=== PATIENT | male | born 1970 ===

== ENCOUNTER 2023-04-06 00:30 | Inpatient (IN) | payer OTHER, SELFPAY ==
[2023-04-06 00:49] VITALS: BP 152/74; PULSE 100; RESP 18; TEMP 36.7; O2SAT 99
[2023-04-06 01:27] VITALS: BMI 29.1
[2023-04-06] MEDS: traZODone HCL 50 MG TABLET PO (01:28)
[2023-04-06] MEDS: hydrOXYzine HCL 25 MG TABLET PO (01:28)
--- NOTE | 2023-04-06 02:57 | PC.ADMIT ---
PT arrived to unit at 0038 on CV from [place] ED where PT self presented with SI, PT has prior attempts, most recent by R wrist laceration a month ago, requiring 8-9 stitches. PT A+O, cooperative during admission process, VSS, skin/contraband check completed, PT changed out of paper garments into hospital attire. PT has scar on R lower leg, PT reports right hand weakness and bilateral lower extremity weakness. PT denies SI/HI as well as A/VH. PT reports feeling safe on unit at time of admission. Legals signed, treatment plan started, safety tool needs to be done, PT placed on 15 minute safety checks. PT declined flu vaccine, PT is a non smoker, PT reports current ETOH usage of 5-6 beers daily. PT currently resting in bed with eyes closed at this time.
[2023-04-06 08:20] VITALS: BP 139/91; PULSE 95; RESP 16; TEMP 36.8; O2SAT 95
--- NOTE | 2023-04-06 10:02 | HO.PSYADMNOT ---
HPI Date of Service: 04/06/23 Chief Complaint: Major Depressive Disorder, single episode Sources of Information: patient interviewed, chart reviewed and crisis/core team assessment reviewed HPI Subjective Notes: Muhammad Warning and Conditional Voluntary Narrative: Patient is a 52-year-old male with long history of depression, stutter, alcohol dependence, gout, chronic back pain, psoriasis who presents for worsening depression in the face of psychosocial stressors, untreated depression and conflict with his brother. Patient reports that he has been depressed most of his life but he hit it. He said he has been living with his parents his entire life and new at 17 years old that he would struggle living on without them if they . Patient's mom 3 years ago from an ugly malone with cancer which worsened his depression; this past February his father also from cancer, significantly worsening his depression at which time patient attempted suicide by cutting his wrist. After he was hospitalized he remained sober from alcohol for about 2 weeks but then relapsed, again drinking heavily since early March. Patient and his brother both live in the house there father owned and this past week his brother said that patient had to leave the house, triggering patient to become suicidal who then self presented, not wanting to hurt himself. Patient currently in alcohol withdrawal, drinking up to 15 drinks per night; denies any history of alcohol withdrawal seizures. No AVH; denies any history of manic episodes or behaviors. Past Psychiatric History: Reports depressed for most of his life; little medication management Hospitalized a little over a month ago for suicide attempt Medical Evaluation Reviewed: Hospitalist Destiny Pending COUNT INCLUDES [facility] Medical History (Updated 04/06/23 @ 16:55 by Ahmet Winter MD) MDD (major depressive disorder), recurrent severe, without psychosis Family History: Denies Social History: Has lived with his parents his entire life Substance History: Daily alcohol abuse/dependence; cocaine in distant past Trauma History: Denies Diagnostics Vital Signs (24Hr): Vital Signs - 24 hr 04/06/23 00:49 04/06/23 08:20 Temperature 98.1 F 98.2 F Pulse Rate 100 95 Respiratory Rate 18 16 Blood Pressure 152/74 H 139/91 H Pulse Oximetry 99 95 Oxygen Delivery Method Room Air Room Air BMI result Body Mass Index 29.1 Meds/Allergies Meds Home Medications Medication Instructions Recorded Confirmed Type allopurinol 300 mg tablet 300 mg PO DAILY 04/06/23 04/06/23 History clonazepam 0.5 mg tablet 0.5 mg PO TID PRN Anxiety 04/06/23 04/06/23 History folic acid 1 mg tablet 1 mg PO DAILY 04/06/23 04/06/23 History gabapentin 300 mg capsule 300 mg PO BID 04/06/23 04/06/23 History lisinopril 10 mg tablet 10 mg PO DAILY 04/06/23 04/06/23 History methocarbamol 500 mg tablet 500 mg PO TID@0800,1400,2000 PRN 04/06/23 04/06/23 History Pain oxycodone-acetaminophen 5 mg-325 1 tab PO BID PRN pain 04/06/23 04/06/23 History mg tablet risankizumab-rzaa 150 mg/mL 150 mg subcut Q12W 04/06/23 04/06/23 History subcutaneous syringe ropinirole 1 mg tablet 1 mg PO BEDTIME 04/06/23 04/06/23 History sertraline 100 mg tablet 100 mg PO DAILY 04/06/23 04/06/23 History trazodone 100 mg tablet 100 mg PO BEDTIME PRN Sleep 04/06/23 04/06/23 History zolpidem 5 mg tablet 5 mg PO BEDTIME PRN Sleep 04/06/23 04/06/23 History Allergies Allergies Allergy/AdvReac Type Severity Reaction Status Date / Time No Known Allergies Allergy Verified 04/06/23 00:57 Mental Status Exam Mental Status Exam Narrative: Pt is alert and oriented; behavior is cooperative, friendly and calm; patient is not in distress; dressed in hospital attire, scruffy with adequate hygiene; mood is described as depressed and affect congruent, downcast; eye contact appropriate; Speech is normal rate, volume and prosody and not pressured; some psychomotor retardation present; thought process is organized and goal directed; Thought content is on homelessness, loss of his parents, tx; otherwise pertinent to relevant topics and without any delusional content, paranoid ideations or grandiosity; intermittent passive SI; no HI. There is no evidence of perceptual disturbance and denies AVH. Patients insight and judgment impaired Assessment & Plan Assessment & Plan (1) MDD (major depressive disorder), recurrent severe, without psychosis: Status: Acute Code(s): F33.2 - Major depressive disorder, recurrent severe without psychotic features Plan HPI: Patient is a 52-year-old male with long history of depression, stutter, alcohol dependence, gout, chronic back pain, psoriasis who presents for worsening depression in the face of psychosocial stressors, untreated depression and conflict with his brother. Patient reports that he has been depressed most of his life but he hit it. He said he has been living with his parents his entire life and new at 17 years old that he would struggle living on without them if they . Patient's mom 3 years ago from an ugly malone with cancer which worsened his depression; this past February his father also from cancer, significantly worsening his depression at which time patient attempted suicide by cutting his wrist. After he was hospitalized he remained sober from alcohol for about 2 weeks but then relapsed, again drinking heavily since early March. Patient and his brother both live in the house there father owned and this past week his brother said that patient had to leave the house, triggering patient to become suicidal who then self presented, not wanting to hurt himself. Patient currently in alcohol withdrawal, drinking up to 15 drinks per night; denies any history of alcohol withdrawal seizures. No AVH; denies any history of manic episodes or behaviors. Impression/plan: Patient reports depression most of his life; it seems that stutter, present from a young age has been a debilitating experience and patient became dependent on his parents, living with them throughout his life. With his parents now , his brother wants him evicted from the house. He said he hid his depression which has largely gone untreated except for low dose of Zoloft for a couple years. Patient has chronic pain and is chronically on Percocet. Plan CV Q 15 minutes CIWA with Ativan p.r.n. Increase Zoloft to 150 mg; was recently increased to 100 mg about a month ago Continue clonazepam 0.5 mg t.i.d; home medication Continue gabapentin 300 mg however will increase it to q.i.d. for alcohol withdrawal Continue oxycodone 5 mg; patient may take it with acetaminophen Make allopurinol p.r.n.; patient has not taking it in years and only uses as a p.r.n. Continue lisinopril for BP Continue ropinirole for restless leg Patient educated on: diagnosis, medication risk/benefits, substance abuse, therapeutic strategies and medical condition Informed Consent: understands Reason for continued inpatient stay Substantial Risk for: rapid decompensation Statement Statement: I have reviewed the history and physical and performed a pertinent examination on my patient. No changes have occurred unless specified. If the History and Physical was not performed prior to admission, the Hospitalist's service will be consulted for completing the admission physical. Time Spent With Patient Time: Total time managing care of this patient today ____ minutes.
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
[2023-04-06] MEDS: LORazepam 1 MG TABLET 2 MG PO (12:16)
[2023-04-06] MEDS: Gabapentin 300 MG CAPSULE PO ×4 (12:16→20:14)
[2023-04-06] MEDS: clonazePAM 0.5 MG TABLET PO ×3 (13:32→20:14)
[2023-04-06] MEDS: oxyCODONE HCl Immed Release 5 MG TABLET PO ×2 (13:32→20:14)
[2023-04-06] MEDS: Acetaminophen 325 MG TABLET 650 MG PO (13:34)
[2023-04-06 17:26] VITALS: BP 114/80; PULSE 101; O2SAT 98
[2023-04-06] MEDS: rOPINIRole HCL 1 MG TABLET PO (20:14)
[2023-04-06] MEDS: traZODone HCL 100 MG TABLET PO (20:14)
[2023-04-07] MEDS: LORazepam 1 MG TABLET PO (06:05)
[2023-04-07] MEDS: Magnesium Hydrox/Alum Hydrox 30 ML ORAL.SUSP PO (06:06)
[2023-04-07 07:52] LABS: Estimated Average Glucose 111 mg/dL; Hemoglobin A1c % 5.5 % (<6.0)
[2023-04-07 07:57] LABS: Alanine Aminotransferase 31 U/L (0-40); Albumin Level 4.3 g/dL (3.5-5.0); Alkaline Phosphatase 56 U/L (39-117); Anion Gap 12 (12-20); Aspartate Amino Transferase 26 U/L (5-37); Bilirubin Total 0.6 mg/dL (0.0-1.0); Blood Urea Nitrogen 7 mg/dL (9-16); Calcium 10.3 mg/dL (8.4-10.2); Carbon Dioxide 29 mmol/L (22-29); Chloride 104 mmol/L (96-108); Cholesterol 151 mg/dL (<200); Creatinine Clr Calc Pharmacy 113.9; Estimated Glomerular Filt Rate > 60; Glucose Fasting 138 mg/dL (60-99); HDL Cholesterol 39 mg/dL (>40); LDL Cholesterol Calculated 82 mg/dL (<100); Sodium 141 mmol/L (135-145); Total Protein 7.5 g/dL (6.5-8.0); Triglycerides 152 mg/dL (<150)
[2023-04-07 08:00] VITALS: BP 132/79; PULSE 91; RESP 16; TEMP 36.6; O2SAT 97
[2023-04-07 08:14] LABS: Thyroid Stimulating Hormone 0.92 uIU/mL (0.32-4.0)
[2023-04-07 08:28] LABS: Folate 12.2 ng/mL (> or = 4.0); Vitamin B12 344 pg/mL (200-900)
[2023-04-07] MEDS: Folic Acid 1 MG TABLET PO (08:28)
[2023-04-07] MEDS: Sertraline HCL 50 MG TABLET 150 MG PO (08:28)
[2023-04-07] MEDS: lisinopriL 10 MG TABLET PO (08:28)
[2023-04-07] MEDS: clonazePAM 0.5 MG TABLET PO ×3 (08:28→19:51)
[2023-04-07] MEDS: Gabapentin 300 MG CAPSULE PO ×4 (08:28→19:51)
[2023-04-07] MEDS: Acetaminophen 325 MG TABLET 650 MG PO (08:38)
[2023-04-07] MEDS: oxyCODONE HCl Immed Release 5 MG TABLET PO ×2 (08:38→17:14)
--- NOTE | 2023-04-07 09:27 | HO.PSYCHPN ---
Subjective Subjective Date of Service: 04/07/23 Reason For Visit: Major Depressive Disorder, single episode Interim History: Met with patient; discussed with team Patient reports that he is feeling a little better and his affect is noticeably brighter. Says withdrawal is winding down and getting close to being over. Thinks that dwindling withdrawal symptoms and getting back on clonazepam and oxycodone have significantly improved his mood. No side effects from increased Zoloft. Patient reports trouble sleeping but thinks it is likely due to withdrawal. Ambivalent about what to do next, anxious about housing. Mental Status Exam Mental Status Exam Narrative: Pt is alert and oriented; behavior is cooperative, friendly and calm; patient is not in distress; dressed in casual attire, good hygiene; mood is described as a little better and affect congruent, no longer downcast; eye contact appropriate; Speech is normal rate, volume and prosody and not pressured; no psychomotor retardation present; thought process is organized and goal directed; Thought content is on homelessness, loss of his parents, tx; otherwise pertinent to relevant topics and without any delusional content, paranoid ideations or grandiosity; intermittent passive SI; no HI. There is no evidence of perceptual disturbance and denies AVH. Patients insight and judgment impaired but improving. Diagnostics Vital Signs (24Hr): Vital Signs - 24 hr 04/06/23 17:26 Pulse Rate 101 H Blood Pressure 114/80 Pulse Oximetry 98 Oxygen Delivery Method Room Air BMI result Body Mass Index 29.1 Labs 04/07/23 06:56 Labs: Laboratory Results - last 48 hr 04/07/23 06:56 Sodium 141 Potassium 4.0 Chloride 104 Carbon Dioxide 29 Anion Gap 12 BUN 7 L Creatinine 0.88 Estim Creat Clear Calc 113.9 Estimated GFR > 60 Fasting Glucose 138 H Estimat Average Glucose 111 Hemoglobin A1c % 5.5 Calcium 10.3 H Total Bilirubin 0.6 AST 26 ALT 31 Alkaline Phosphatase 56 Total Protein 7.5 Albumin 4.3 Triglycerides 152 H Cholesterol 151 LDL Cholesterol, Calc 82 HDL Cholesterol 39 L Vitamin B12 344 Folate 12.2 TSH 0.92 Medications Medications Current Medications Acetaminophen (Acetaminophen 325 Mg Tablet) 650 mg PO Q6H PRN PRN Reason: Headache/Pain Mild Scale (1-3) Last Admin: 04/07/23 08:38 Dose: 650 mg Al Hydroxide/Mg Hydroxide (Magnesium Hydrox/Alum Hydrox 30 Ml Oral.Susp) 30 ml PO Q6H PRN PRN Reason: Heartburn/Nausea Last Admin: 04/07/23 06:06 Dose: 30 ml Allopurinol (Allopurinol 300 Mg Tablet) 300 mg PO DAILY PRN PRN Reason: for Gout flare Clonazepam (Clonazepam 0.5 Mg Tablet) 0.5 mg PO TID [facility] Last Admin: 04/07/23 08:28 Dose: 0.5 mg Clonidine HCl (Clonidine Hcl 0.1 Mg Tablet) 0.1 mg PO Q4H PRN; Protocol PRN Reason: anxiety Folic Acid (Folic Acid 1 Mg Tablet) 1 mg PO DAILY [facility] Last Admin: 04/07/23 08:28 Dose: 1 mg Gabapentin (Gabapentin 300 Mg Capsule) 300 mg PO QID [facility] Last Admin: 04/07/23 08:28 Dose: 300 mg Hydroxyzine HCl (Hydroxyzine Hcl 25 Mg Tablet) 25 mg PO Q6H PRN PRN Reason: Anxiety Last Admin: 04/06/23 01:28 Dose: 25 mg Lisinopril (Lisinopril 10 Mg Tablet) 10 mg PO DAILY [facility]; Protocol Last Admin: 04/07/23 08:28 Dose: 10 mg Lorazepam (Lorazepam 1 Mg Tablet) 1 mg PO Q2H PRN PRN Reason: CIWA 6-10 Last Admin: 04/07/23 06:05 Dose: 1 mg Lorazepam (Lorazepam 1 Mg Tablet) 2 mg PO Q2H PRN PRN Reason: CIWA 11 and above Magnesium Hydroxide (Milk Of Magnesia 30 Ml Oral.Susp) 30 ml PO DAILY PRN PRN Reason: Constipation Methocarbamol (Methocarbamol 500 Mg Tablet) 500 mg PO TID@0800,1400,2000 PRN PRN Reason: muscle aches/Pain Oxycodone HCl (Oxycodone Hcl Immed Release 5 Mg Tablet) 5 mg PO BID PRN PRN Reason: pain Last Admin: 04/07/23 08:38 Dose: 5 mg Ropinirole HCl (Ropinirole Hcl 1 Mg Tablet) 1 mg PO BEDTIME [facility] Last Admin: 04/06/23 20:14 Dose: 1 mg Sertraline HCl (Sertraline Hcl 50 Mg Tablet) 150 mg PO DAILY [facility] Last Admin: 04/07/23 08:28 Dose: 150 mg Trazodone HCl (Trazodone Hcl 100 Mg Tablet) 100 mg PO BEDTIME PRN PRN Reason: Sleep Last Admin: 04/06/23 20:14 Dose: 100 mg Allergies Allergies Allergy/AdvReac Type Severity Reaction Status Date / Time No Known Allergies Allergy Verified 04/06/23 00:57 Assessment & Plan Assessment & Plan (1) MDD (major depressive disorder), recurrent severe, without psychosis: Status: Acute Code(s): F33.2 - Major depressive disorder, recurrent severe without psychotic features Plan HPI: Patient is a 52-year-old male with long history of depression, stutter, alcohol dependence, gout, chronic back pain, psoriasis who presents for worsening depression in the face of psychosocial stressors, untreated depression and conflict with his brother. Patient reports that he has been depressed most of his life but he hit it. He said he has been living with his parents his entire life and new at 17 years old that he would struggle living on without them if they . Patient's mom 3 years ago from an ugly malone with cancer which worsened his depression; this past February his father also from cancer, significantly worsening his depression at which time patient attempted suicide by cutting his wrist. After he was hospitalized he remained sober from alcohol for about 2 weeks but then relapsed, again drinking heavily since early March. Patient and his brother both live in the house there father owned and this past week his brother said that patient had to leave the house, triggering patient to become suicidal who then self presented, not wanting to hurt himself. Patient currently in alcohol withdrawal, drinking up to 15 drinks per night; denies any history of alcohol withdrawal seizures. No AVH; denies any history of manic episodes or behaviors. Impression/plan: Patient reports depression most of his life; it seems that stutter, present from a young age has been a debilitating experience and patient became dependent on his parents, living with them throughout his life. With his parents now , his brother wants him evicted from the house. He said he hid his depression which has largely gone untreated except for low dose of Zoloft for a couple years. Patient has chronic pain and is chronically on Percocet. Hospital course: 04/07 withdrawal symptoms doing delaying, mood improving; continue with current treatment plan. Still some moderate scores on CIWA, however mostly low scores; Will likely DC CIWA today or tomorrow. Plan CV Q 15 minutes CIWA with Ativan p.r.n. Increase Zoloft to 150 mg; was recently increased to 100 mg about a month ago Continue clonazepam 0.5 mg t.i.d; home medication Continue gabapentin 300 mg however will increase it to q.i.d. for alcohol withdrawal Continue oxycodone 5 mg; patient may take it with acetaminophen Make allopurinol p.r.n.; patient has not taking it in years and only uses as a p.r.n. Continue lisinopril for BP Continue ropinirole for restless leg Patient educated on: diagnosis, medication risk/benefits and substance abuse Informed Consent: understands Reason for continued inpatient stay Substantial Risk for: rapid decompensation Time Spent With Patient Time: Total time managing care of this patient today ____ minutes.
[2023-04-07 18:46] VITALS: BP 118/72; PULSE 91; RESP 18; TEMP 36.1; O2SAT 99
[2023-04-07] MEDS: rOPINIRole HCL 1 MG TABLET PO (19:51)
[2023-04-07] MEDS: traZODone HCL 100 MG TABLET PO (19:51)
[2023-04-07] MEDS: methocarbamoL 500 MG TABLET PO (19:55)
[2023-04-07] MEDS: hydrOXYzine HCL 25 MG TABLET PO (19:55)
[2023-04-08] MEDS: hydrOXYzine HCL 25 MG TABLET PO ×2 (02:35→21:06)
[2023-04-08 07:50] VITALS: BP 113/73; PULSE 91; RESP 16; TEMP 36.6; O2SAT 97
[2023-04-08] MEDS: Gabapentin 300 MG CAPSULE PO ×4 (07:57→21:06)
[2023-04-08] MEDS: Sertraline HCL 50 MG TABLET 150 MG PO (07:57)
[2023-04-08] MEDS: oxyCODONE HCl Immed Release 5 MG TABLET PO ×2 (07:57→16:19)
[2023-04-08] MEDS: lisinopriL 10 MG TABLET PO (07:57)
[2023-04-08] MEDS: Folic Acid 1 MG TABLET PO (07:57)
[2023-04-08] MEDS: Acetaminophen 325 MG TABLET 650 MG PO (07:58)
[2023-04-08] MEDS: clonazePAM 0.5 MG TABLET PO ×3 (07:58→21:06)
--- NOTE | 2023-04-08 11:10 | HO.PSYCHPN ---
Subjective Subjective Date of Service: 04/08/23 Reason For Visit: Major Depressive Disorder, single episode Interim History: Met with patient; discussed with team still hard time sleeping, but mood better; asking for Clonazepam and gabapentin together which he takes as outpt' Mental Status Exam Mental Status Exam Narrative: Pt is alert and oriented; behavior is cooperative, friendly and calm; patient is not in distress; dressed in casual attire, good hygiene; mood is described as a little better and affect congruent, no longer downcast; eye contact appropriate; Speech is normal rate, volume and prosody and not pressured; no psychomotor retardation present; thought process is organized and goal directed; Thought content is on homelessness, loss of his parents, tx; otherwise pertinent to relevant topics and without any delusional content, paranoid ideations or grandiosity; intermittent passive SI; no HI. There is no evidence of perceptual disturbance and denies AVH. Patients insight and judgment fair Diagnostics Vital Signs (24Hr): Vital Signs - 24 hr 04/07/23 18:46 04/08/23 07:50 Temperature 97.0 F 98 F Pulse Rate 91 91 Respiratory Rate 18 16 Blood Pressure 118/72 113/73 Pulse Oximetry 99 97 Oxygen Delivery Method Room Air Room Air BMI result Body Mass Index 29.1 Labs 04/07/23 06:56 Labs: Laboratory Results - last 48 hr 04/07/23 06:56 Sodium 141 Potassium 4.0 Chloride 104 Carbon Dioxide 29 Anion Gap 12 BUN 7 L Creatinine 0.88 Estim Creat Clear Calc 113.9 Estimated GFR > 60 Fasting Glucose 138 H Estimat Average Glucose 111 Hemoglobin A1c % 5.5 Calcium 10.3 H Total Bilirubin 0.6 AST 26 ALT 31 Alkaline Phosphatase 56 Total Protein 7.5 Albumin 4.3 Triglycerides 152 H Cholesterol 151 LDL Cholesterol, Calc 82 HDL Cholesterol 39 L Vitamin B12 344 Folate 12.2 TSH 0.92 Medications Medications Current Medications Acetaminophen (Acetaminophen 325 Mg Tablet) 650 mg PO Q6H PRN PRN Reason: Headache/Pain Mild Scale (1-3) Last Admin: 04/08/23 07:58 Dose: 650 mg Al Hydroxide/Mg Hydroxide (Magnesium Hydrox/Alum Hydrox 30 Ml Oral.Susp) 30 ml PO Q6H PRN PRN Reason: Heartburn/Nausea Last Admin: 04/07/23 06:06 Dose: 30 ml Allopurinol (Allopurinol 300 Mg Tablet) 300 mg PO DAILY PRN PRN Reason: for Gout flare Clonazepam (Clonazepam 0.5 Mg Tablet) 0.5 mg PO TID [facility] Last Admin: 04/08/23 07:58 Dose: 0.5 mg Clonidine HCl (Clonidine Hcl 0.1 Mg Tablet) 0.1 mg PO Q4H PRN; Protocol PRN Reason: anxiety Folic Acid (Folic Acid 1 Mg Tablet) 1 mg PO DAILY [facility] Last Admin: 04/08/23 07:57 Dose: 1 mg Gabapentin (Gabapentin 300 Mg Capsule) 300 mg PO QID [facility] Last Admin: 04/08/23 07:57 Dose: 300 mg Hydroxyzine HCl (Hydroxyzine Hcl 25 Mg Tablet) 25 mg PO Q6H PRN PRN Reason: Anxiety Last Admin: 04/08/23 02:35 Dose: 25 mg Lisinopril (Lisinopril 10 Mg Tablet) 10 mg PO DAILY [facility]; Protocol Last Admin: 04/08/23 07:57 Dose: 10 mg Lorazepam (Lorazepam 1 Mg Tablet) 1 mg PO Q2H PRN PRN Reason: CIWA 6-10 Last Admin: 04/07/23 06:05 Dose: 1 mg Lorazepam (Lorazepam 1 Mg Tablet) 2 mg PO Q2H PRN PRN Reason: CIWA 11 and above Magnesium Hydroxide (Milk Of Magnesia 30 Ml Oral.Susp) 30 ml PO DAILY PRN PRN Reason: Constipation Methocarbamol (Methocarbamol 500 Mg Tablet) 500 mg PO TID@0800,1400,2000 PRN PRN Reason: muscle aches/Pain Last Admin: 04/07/23 19:55 Dose: 500 mg Oxycodone HCl (Oxycodone Hcl Immed Release 5 Mg Tablet) 5 mg PO BID PRN PRN Reason: pain Last Admin: 04/08/23 07:57 Dose: 5 mg Ropinirole HCl (Ropinirole Hcl 1 Mg Tablet) 1 mg PO BEDTIME [facility] Last Admin: 04/07/23 19:51 Dose: 1 mg Sertraline HCl (Sertraline Hcl 50 Mg Tablet) 150 mg PO DAILY [facility] Last Admin: 04/08/23 07:57 Dose: 150 mg Trazodone HCl (Trazodone Hcl 100 Mg Tablet) 100 mg PO BEDTIME PRN PRN Reason: Sleep Last Admin: 04/07/23 19:51 Dose: 100 mg Allergies Allergies Allergy/AdvReac Type Severity Reaction Status Date / Time No Known Allergies Allergy Verified 04/06/23 00:57 Assessment & Plan Assessment & Plan (1) MDD (major depressive disorder), recurrent severe, without psychosis: Status: Acute Code(s): F33.2 - Major depressive disorder, recurrent severe without psychotic features Plan HPI: Patient is a 52-year-old male with long history of depression, stutter, alcohol dependence, gout, chronic back pain, psoriasis who presents for worsening depression in the face of psychosocial stressors, untreated depression and conflict with his brother. Patient reports that he has been depressed most of his life but he hit it. He said he has been living with his parents his entire life and new at 17 years old that he would struggle living on without them if they . Patient's mom 3 years ago from an ugly malone with cancer which worsened his depression; this past February his father also from cancer, significantly worsening his depression at which time patient attempted suicide by cutting his wrist. After he was hospitalized he remained sober from alcohol for about 2 weeks but then relapsed, again drinking heavily since early March. Patient and his brother both live in the house there father owned and this past week his brother said that patient had to leave the house, triggering patient to become suicidal who then self presented, not wanting to hurt himself. Patient currently in alcohol withdrawal, drinking up to 15 drinks per night; denies any history of alcohol withdrawal seizures. No AVH; denies any history of manic episodes or behaviors. Impression/plan: Patient reports depression most of his life; it seems that stutter, present from a young age has been a debilitating experience and patient became dependent on his parents, living with them throughout his life. With his parents now , his brother wants him evicted from the house. He said he hid his depression which has largely gone untreated except for low dose of Zoloft for a couple years. Patient has chronic pain and is chronically on Percocet. Hospital course: 04/07 withdrawal symptoms doing delaying, mood improving; continue with current treatment plan. Still some moderate scores on CIWA, however mostly low scores; Will likely DC CIWA today or tomorrow. 04/08 continue tx plan; dc [facility] Plan CV Q 15 minutes DC CIWA with Ativan p.r.n. Continue Zoloft to 150 mg; Continue clonazepam 0.5 mg t.i.d; home medication Continue gabapentin 300 mg however will increase it to q.i.d. for alcohol withdrawal Continue oxycodone 5 mg; patient may take it with acetaminophen Make allopurinol p.r.n.; patient has not taking it in years and only uses as a p.r.n. Continue lisinopril for BP Continue ropinirole for restless leg Patient educated on: diagnosis, medication risk/benefits and substance abuse Informed Consent: understands Reason for continued inpatient stay Substantial Risk for: rapid decompensation Time Spent With Patient Time: Total time managing care of this patient today ____ minutes.
[2023-04-08] MEDS: Magnesium Hydrox/Alum Hydrox 30 ML ORAL.SUSP PO (13:28)
[2023-04-08] MEDS: Famotidine 20 MG TABLET PO ×2 (15:10→21:06)
[2023-04-08 16:29] VITALS: BP 122/74; PULSE 93; RESP 16; TEMP 36.7; O2SAT 98
[2023-04-08] MEDS: traZODone HCL 100 MG TABLET PO (21:06)
[2023-04-08] MEDS: rOPINIRole HCL 1 MG TABLET PO (21:07)
[2023-04-08] MEDS: methocarbamoL 500 MG TABLET PO (21:07)
[2023-04-09] MEDS: cloNIDine HCL 0.1 MG TABLET PO ×3 (00:14→21:04)
[2023-04-09] MEDS: hydrOXYzine HCL 25 MG TABLET PO ×2 (04:58→21:04)
[2023-04-09 08:20] VITALS: BP 103/59; PULSE 85; RESP 16; TEMP 36.5; O2SAT 98
--- NOTE | 2023-04-09 08:46 | P.PNPSI_ITS ---
Subjective Subjective Date of Service: 04/09/23 Reason For Visit: Major Depressive Disorder, single episode Interim History: Met with patient; discussed with team Reports mood better but right-sided abdominal pain; still with some diarrhea but less; obtained labs, LFTs WNL. Patient reports past diagnosis of fatty liver; will continue to monitor. Patient ambivalent about a program; ambivalent about returning to his home though realizing he has legal rights to Mental Status Exam Mental Status Exam Narrative: Pt is alert and oriented; behavior is cooperative, friendly and calm; patient is not in distress; dressed in casual attire, good hygiene; mood is described as ok and affect congruent, no longer downcast; eye contact appropriate; Speech is normal rate, volume and prosody and not pressured; no psychomotor retardation present; thought process is organized and goal directed; Thought content is on homelessness, loss of his parents, tx; otherwise pertinent to relevant topics and without any delusional content, paranoid ideations or grandiosity; intermittent passive SI; no HI. There is no evidence of perceptual disturbance and denies AVH. Patients insight and judgment fair Diagnostics Vital Signs (24Hr): Vital Signs - 24 hr 04/08/23 16:29 Temperature 98.1 F Pulse Rate 93 Respiratory Rate 16 Blood Pressure 122/74 Pulse Oximetry 98 Oxygen Delivery Method Room Air BMI result Body Mass Index 29.1 Labs 04/09/23 11:42 Medications Medications Current Medications Acetaminophen (Acetaminophen 325 Mg Tablet) 650 mg PO Q6H PRN PRN Reason: Headache/Pain Mild Scale (1-3) Last Admin: 04/08/23 07:58 Dose: 650 mg Al Hydroxide/Mg Hydroxide (Magnesium Hydrox/Alum Hydrox 30 Ml Oral.Susp) 30 ml PO Q6H PRN PRN Reason: Heartburn/Nausea Last Admin: 04/08/23 13:28 Dose: 30 ml Allopurinol (Allopurinol 300 Mg Tablet) 300 mg PO DAILY PRN PRN Reason: for Gout flare Clonazepam (Clonazepam 0.5 Mg Tablet) 0.5 mg PO TID [facility] Last Admin: 04/08/23 21:06 Dose: 0.5 mg Clonidine HCl (Clonidine Hcl 0.1 Mg Tablet) 0.1 mg PO Q4H PRN; Protocol PRN Reason: anxiety Last Admin: 04/09/23 04:58 Dose: 0.1 mg Famotidine (Famotidine 20 Mg Tablet) 20 mg PO BID [facility] Last Admin: 04/08/23 21:06 Dose: 20 mg Folic Acid (Folic Acid 1 Mg Tablet) 1 mg PO DAILY [facility] Last Admin: 04/08/23 07:57 Dose: 1 mg Gabapentin (Gabapentin 300 Mg Capsule) 300 mg PO TID [facility] Last Admin: 04/08/23 21:06 Dose: 300 mg Hydroxyzine HCl (Hydroxyzine Hcl 25 Mg Tablet) 25 mg PO Q6H PRN PRN Reason: Anxiety Last Admin: 04/09/23 04:58 Dose: 25 mg Lisinopril (Lisinopril 10 Mg Tablet) 10 mg PO DAILY [facility]; Protocol Last Admin: 04/08/23 07:57 Dose: 10 mg Magnesium Hydroxide (Milk Of Magnesia 30 Ml Oral.Susp) 30 ml PO DAILY PRN PRN Reason: Constipation Methocarbamol (Methocarbamol 500 Mg Tablet) 500 mg PO TID@0800,1400,2000 PRN PRN Reason: muscle aches/Pain Last Admin: 04/08/23 21:07 Dose: 500 mg Oxycodone HCl (Oxycodone Hcl Immed Release 5 Mg Tablet) 5 mg PO BID PRN PRN Reason: pain Last Admin: 04/08/23 16:19 Dose: 5 mg Ropinirole HCl (Ropinirole Hcl 1 Mg Tablet) 1 mg PO BEDTIME [facility] Last Admin: 04/08/23 21:07 Dose: 1 mg Sertraline HCl (Sertraline Hcl 50 Mg Tablet) 150 mg PO DAILY [facility] Last Admin: 04/08/23 07:57 Dose: 150 mg Trazodone HCl (Trazodone Hcl 100 Mg Tablet) 100 mg PO BEDTIME PRN PRN Reason: Sleep Last Admin: 04/08/23 21:06 Dose: 100 mg Allergies Allergies Allergy/AdvReac Type Severity Reaction Status Date / Time No Known Allergies Allergy Verified 04/06/23 00:57 Assessment & Plan Assessment & Plan (1) MDD (major depressive disorder), recurrent severe, without psychosis: Status: Acute Code(s): F33.2 - Major depressive disorder, recurrent severe without psychotic features Plan HPI: Patient is a 52-year-old male with long history of depression, stutter, alcohol dependence, gout, chronic back pain, psoriasis who presents for worsening depression in the face of psychosocial stressors, untreated depression and conflict with his brother. Patient reports that he has been depressed most of his life but he hit it. He said he has been living with his parents his entire life and new at 17 years old that he would struggle living on without them if they . Patient's mom 3 years ago from an ugly malone with cancer which worsened his depression; this past February his father also from cancer, significantly worsening his depression at which time patient attempted suicide by cutting his wrist. After he was hospitalized he remained sober from alcohol for about 2 weeks but then relapsed, again drinking heavily since early March. Patient and his brother both live in the house there father owned and this past week his brother said that patient had to leave the house, triggering patient to become suicidal who then self presented, not wanting to hurt himself. Patient currently in alcohol withdrawal, drinking up to 15 drinks per night; denies any history of alcohol withdrawal seizures. No AVH; denies any history of manic episodes or behaviors. Impression/plan: Patient reports depression most of his life; it seems that stutter, present from a young age has been a debilitating experience and patient became dependent on his parents, living with them throughout his life. With his parents now , his brother wants him evicted from the house. He said he hid his depression which has largely gone untreated except for low dose of Zoloft for a couple years. Patient has chronic pain and is chronically on Percocet. Hospital course: 04/07 withdrawal symptoms doing delaying, mood improving; continue with current treatment plan. Still some moderate scores on CIWA, however mostly low scores; Will likely DC CIWA today or tomorrow. 04/08 continue tx plan; dc [facility] 04/09 Reports mood better but right-sided abdominal pain; still with some diarrhea but less; obtained labs, LFTs WNL. Patient reports past diagnosis of fatty liver; will continue to monitor. Patient ambivalent about a program; ambivalent about returning to his home though realizing he has legal rights to Plan CV Q 15 minutes DC CIWA with Ativan p.r.n. Continue Zoloft to 150 mg; Continue clonazepam 0.5 mg t.i.d; home medication Continue gabapentin 300 mg however will increase it to q.i.d. for alcohol withdrawal Continue oxycodone 5 mg; patient may take it with acetaminophen Make allopurinol p.r.n.; patient has not taking it in years and only uses as a p.r.n. Continue lisinopril for BP Continue ropinirole for restless leg Patient educated on: diagnosis, medication risk/benefits, substance abuse and medical condition Informed Consent: understands Reason for continued inpatient stay Substantial Risk for: rapid decompensation Time Spent With Patient Time: Total time managing care of this patient today ____ minutes.
[2023-04-09] MEDS: lisinopriL 10 MG TABLET PO (08:47)
[2023-04-09] MEDS: Sertraline HCL 50 MG TABLET 150 MG PO (08:47)
[2023-04-09] MEDS: Famotidine 20 MG TABLET PO ×2 (08:47→21:03)
[2023-04-09] MEDS: Folic Acid 1 MG TABLET PO (08:48)
[2023-04-09] MEDS: clonazePAM 0.5 MG TABLET PO ×3 (08:48→21:03)
[2023-04-09] MEDS: Gabapentin 300 MG CAPSULE PO ×3 (08:48→21:02)
[2023-04-09 13:08] LABS: Alanine Aminotransferase 37 U/L (0-40); Albumin Level 4.3 g/dL (3.5-5.0); Alkaline Phosphatase 55 U/L (39-117); Anion Gap 9 (12-20); Aspartate Amino Transferase 31 U/L (5-37); Bilirubin Total 0.3 mg/dL (0.0-1.0); Blood Urea Nitrogen 11 mg/dL (9-16); Calcium 10.1 mg/dL (8.4-10.2); Carbon Dioxide 30 mmol/L (22-29); Chloride 102 mmol/L (96-108); Creatinine Clr Calc Pharmacy 119.3; Estimated Glomerular Filt Rate > 60; Glucose Random 133 mg/dL (60-115); Sodium 137 mmol/L (135-145); Total Protein 7.5 g/dL (6.5-8.0)
[2023-04-09] MEDS: oxyCODONE HCl Immed Release 5 MG TABLET PO ×2 (17:05→21:03)
[2023-04-09 18:00] VITALS: BP 100/65; PULSE 91; RESP 16; TEMP 36.7; O2SAT 97
[2023-04-09] MEDS: traZODone HCL 100 MG TABLET PO (21:03)
[2023-04-09] MEDS: rOPINIRole HCL 1 MG TABLET PO (21:03)
[2023-04-09] MEDS: methocarbamoL 500 MG TABLET PO (21:03)
[2023-04-10 07:58] VITALS: BP 100/62; PULSE 74; RESP 16; TEMP 36.2; O2SAT 98
[2023-04-10] MEDS: Folic Acid 1 MG TABLET PO (08:08)
[2023-04-10] MEDS: Gabapentin 300 MG CAPSULE PO ×3 (08:08→20:32)
[2023-04-10] MEDS: Famotidine 20 MG TABLET PO ×2 (08:08→20:33)
[2023-04-10] MEDS: Sertraline HCL 50 MG TABLET 150 MG PO (08:08)
[2023-04-10] MEDS: lisinopriL 10 MG TABLET PO (08:08)
[2023-04-10] MEDS: clonazePAM 0.5 MG TABLET PO ×3 (08:08→20:32)
[2023-04-10] MEDS: oxyCODONE HCl Immed Release 5 MG TABLET PO ×2 (09:05→16:14)
--- NOTE | 2023-04-10 09:24 | P.PNPSI_ITS ---
Subjective Subjective Date of Service: 04/10/23 Reason For Visit: Major Depressive Disorder, single episode Interim History: Met with patient; discussed with team Patient reports that his mood remains much better; no SI. Abdominal pain also seems to be resolving. Patient angry at is older brother who tried to kick him out of the house. Patient says he knows that that is not allowing bowl and he could return there however he does not like being around his brother who is mean, authoritative and triggering; he says that his brother told him to go cut his wrist and when he did, he did not even call 911. Patient says when he thinks about this sometimes he just wishes he could be and with his parents however he denies any active SI. Patient was offered to live with his other brother which patient is strongly considering; he thinks that in the meantime his other family members Will intervene with this housing situation. Patient does not want to go to a CSS, substance abuse program. Talked about sobriety and patient said that is really tough... He says he has tried many times before and is not optimistic that he will be able to stay sober. He says he is not going to start making new friends now and that all his friends he has met at the local bars... [employer] talked about AA and the possibility of making new friends there; however patient says At 52 he does not see himself making this change. He does agree he needs to cut down his drinking. Mental Status Exam Mental Status Exam Narrative: Pt is alert and oriented; behavior is cooperative, friendly and calm; patient is not in distress; dressed in casual attire, good hygiene; mood is described as mood is good and affect congruent, brighter, calm; eye contact appropriate; Speech is normal rate, volume and prosody and not pressured; no psychomotor retardation present; thought process is organized and goal directed; Thought content is on family dynamics, loss of his parents, tx; otherwise pertinent to relevant topics and without any delusional content, paranoid ideations or grandiosity; intermittent passive SI; no HI. There is no evidence of perceptual disturbance and denies AVH. Patients insight and judgment fair Diagnostics Vital Signs (24Hr): Vital Signs - 24 hr 04/09/23 18:00 04/10/23 07:58 Temperature 98.1 F 97.2 F Pulse Rate 91 74 Respiratory Rate 16 16 Blood Pressure 100/65 100/62 Pulse Oximetry 97 98 Oxygen Delivery Method Room Air Room Air BMI result Body Mass Index 29.1 Labs 04/09/23 11:42 Labs: Laboratory Results - last 48 hr 04/09/23 11:42 Sodium 137 Potassium 4.0 Chloride 102 Carbon Dioxide 30 H Anion Gap 9 L BUN 11 Creatinine 0.84 Estim Creat Clear Calc 119.3 Estimated GFR > 60 Random Glucose 133 H Calcium 10.1 Total Bilirubin 0.3 AST 31 ALT 37 Alkaline Phosphatase 55 Total Protein 7.5 Albumin 4.3 Medications Medications Current Medications Acetaminophen (Acetaminophen 325 Mg Tablet) 650 mg PO Q6H PRN PRN Reason: Headache/Pain Mild Scale (1-3) Last Admin: 04/08/23 07:58 Dose: 650 mg Al Hydroxide/Mg Hydroxide (Magnesium Hydrox/Alum Hydrox 30 Ml Oral.Susp) 30 ml PO Q6H PRN PRN Reason: Heartburn/Nausea Last Admin: 04/08/23 13:28 Dose: 30 ml Allopurinol (Allopurinol 300 Mg Tablet) 300 mg PO DAILY PRN PRN Reason: for Gout flare Clonazepam (Clonazepam 0.5 Mg Tablet) 0.5 mg PO TID [facility] Last Admin: 04/10/23 08:08 Dose: 0.5 mg Clonidine HCl (Clonidine Hcl 0.1 Mg Tablet) 0.1 mg PO Q4H PRN; Protocol PRN Reason: anxiety Last Admin: 04/09/23 21:04 Dose: 0.1 mg Famotidine (Famotidine 20 Mg Tablet) 20 mg PO BID [facility] Last Admin: 04/10/23 08:08 Dose: 20 mg Folic Acid (Folic Acid 1 Mg Tablet) 1 mg PO DAILY [facility] Last Admin: 04/10/23 08:08 Dose: 1 mg Gabapentin (Gabapentin 300 Mg Capsule) 300 mg PO TID [facility] Last Admin: 04/10/23 08:08 Dose: 300 mg Hydroxyzine HCl (Hydroxyzine Hcl 25 Mg Tablet) 25 mg PO Q6H PRN PRN Reason: Anxiety Last Admin: 04/09/23 21:04 Dose: 25 mg Lisinopril (Lisinopril 10 Mg Tablet) 10 mg PO DAILY [facility]; Protocol Last Admin: 04/10/23 08:08 Dose: 10 mg Magnesium Hydroxide (Milk Of Magnesia 30 Ml Oral.Susp) 30 ml PO DAILY PRN PRN Reason: Constipation Methocarbamol (Methocarbamol 500 Mg Tablet) 500 mg PO TID@0800,1400,2000 PRN PRN Reason: muscle aches/Pain Last Admin: 04/09/23 21:03 Dose: 500 mg Oxycodone HCl (Oxycodone Hcl Immed Release 5 Mg Tablet) 5 mg PO BID PRN PRN Reason: pain Last Admin: 04/10/23 09:05 Dose: 5 mg Ropinirole HCl (Ropinirole Hcl 1 Mg Tablet) 1 mg PO BEDTIME [facility] Last Admin: 04/09/23 21:03 Dose: 1 mg Sertraline HCl (Sertraline Hcl 50 Mg Tablet) 150 mg PO DAILY [facility] Last Admin: 04/10/23 08:08 Dose: 150 mg Trazodone HCl (Trazodone Hcl 100 Mg Tablet) 100 mg PO BEDTIME PRN PRN Reason: Sleep Last Admin: 04/09/23 21:03 Dose: 100 mg Allergies Allergies Allergy/AdvReac Type Severity Reaction Status Date / Time No Known Allergies Allergy Verified 04/06/23 00:57 Assessment & Plan Assessment & Plan (1) MDD (major depressive disorder), recurrent severe, without psychosis: Status: Acute Code(s): F33.2 - Major depressive disorder, recurrent severe without psychotic features (2) Fatty liver: Status: Acute Code(s): K76.0 - Fatty (change of) liver, not elsewhere classified Plan HPI: Patient is a 52-year-old male with long history of depression, stutter, alcohol dependence, gout, chronic back pain, psoriasis who presents for worsening depression in the face of psychosocial stressors, untreated depression and conflict with his brother. Patient reports that he has been depressed most of his life but he hit it. He said he has been living with his parents his entire life and new at 17 years old that he would struggle living on without them if they . Patient's mom 3 years ago from an ugly malone with cancer which worsened his depression; this past February his father also from cancer, significantly worsening his depression at which time patient attempted suicide by cutting his wrist. After he was hospitalized he remained sober from alcohol for about 2 weeks but then relapsed, again drinking heavily since early March. Patient and his brother both live in the house there father owned and this past week his brother said that patient had to leave the house, triggering patient to become suicidal who then self presented, not wanting to hurt himself. Patient currently in alcohol withdrawal, drinking up to 15 drinks per night; denies any history of alcohol withdrawal seizures. No AVH; denies any history of manic episodes or behaviors. Impression/plan: Patient reports depression most of his life; it seems that stutter, present from a young age has been a debilitating experience and patient became dependent on his parents, living with them throughout his life. With his parents now , his brother wants him evicted from the house. He said he hid his depression which has largely gone untreated except for low dose of Zoloft for a couple years. Patient has chronic pain and is chronically on Percocet. Hospital course: 04/07 withdrawal symptoms doing delaying, mood improving; continue with current treatment plan. Still some moderate scores on CIWA, however mostly low scores; Will likely DC CIWA today or tomorrow. 04/08 continue tx plan; dc [facility] 04/09 Reports mood better but right-sided abdominal pain; still with some diarrhea but less; obtained labs, LFTs WNL. Patient reports past diagnosis of fatty liver; will continue to monitor. Patient ambivalent about a program; ambivalent about returning to his home though realizing he has legal rights to 04/10 Patient reports that his mood remains much better; no SI. Abdominal pain also seems to be resolving. Patient angry at is older brother who tried to kick him out of the house. Patient says he knows that that is not allowing bowl and he could return there however he does not like being around his brother who is mean, authoritative and triggering; he says that his brother told him to go cut his wrist and when he did, he did not even call 911. Patient says when he thinks about this sometimes he just wishes he could be and with his parents however he denies any active SI. Patient was offered to live with his other brother which patient is strongly considering; he thinks that in the meantime his other family members Will intervene with this housing situation. Patient does not want to go to a CSS, substance abuse program. Talked about sobriety and patient said that is really tough... He says he has tried many times before and is not optimistic that he will be able to stay sober. He says he is not going to start making new friends now and that all his friends he has met at the local bars... [employer] Engineer talked about AA and the possibility of making new friends there; however patient says At 52 he does not see himself making this change. He does agree he needs to cut down his drinking. Plan CV Q 15 minutes Continue Zoloft to 150 mg; Continue clonazepam 0.5 mg t.i.d; home medication Continue gabapentin 300 mg however will increase it to q.i.d. for alcohol withdrawal Continue oxycodone 5 mg; patient may take it with acetaminophen Make allopurinol p.r.n.; patient has not taking it in years and only uses as a p.r.n. Continue lisinopril for BP Continue ropinirole for restless leg Patient educated on: diagnosis, medication risk/benefits, substance abuse and therapeutic strategies Informed Consent: understands Reason for continued inpatient stay Substantial Risk for: stable for discharge Time Spent With Patient Time: Total time managing care of this patient today ____ minutes.
[2023-04-10 18:00] VITALS: BP 122/61; PULSE 98; RESP 16; TEMP 36.3; O2SAT 98
[2023-04-10] MEDS: traZODone HCL 100 MG TABLET PO (20:33)
[2023-04-10] MEDS: rOPINIRole HCL 1 MG TABLET PO (20:33)
[2023-04-11 08:24] VITALS: BP 126/79; PULSE 83; RESP 16; TEMP 36.4; O2SAT 97
[2023-04-11] MEDS: Sertraline HCL 50 MG TABLET 150 MG PO (08:26)
[2023-04-11] MEDS: lisinopriL 10 MG TABLET PO (08:26)
[2023-04-11] MEDS: Gabapentin 300 MG CAPSULE PO ×3 (08:27→20:50)
[2023-04-11] MEDS: clonazePAM 0.5 MG TABLET PO ×3 (08:27→20:51)
[2023-04-11] MEDS: Famotidine 20 MG TABLET PO ×2 (08:27→20:50)
[2023-04-11] MEDS: Folic Acid 1 MG TABLET PO (08:27)
[2023-04-11] MEDS: oxyCODONE HCl Immed Release 5 MG TABLET PO ×2 (09:11→17:18)
--- NOTE | 2023-04-11 09:14 | HO.PSYCHPN ---
Subjective Subjective Date of Service: 04/11/23 Reason For Visit: Major Depressive Disorder, single episode Interim History: Met with patient; discussed with team UA negative however glucose in urine; discussed with patient who said he will follow-up with outpatient PCP Patient remains with improved mood but is anxious about dealing with aftercare options, getting his things from his house, where he will stay. Was hoping to stay at his brother's but finds that might not happen in may have to return to his house with his older brother who is quite a negative influence. Patient agrees that this will be difficult but also agrees that he has been through worse and that he will be able to manage it. Patient said he will will work this out with his family. Mental Status Exam Mental Status Exam Narrative: Pt is alert and oriented; behavior is cooperative, friendly and calm; patient is not in distress; dressed in casual attire, good hygiene; mood is described as okay and affect congruent, overall brighter, calm; eye contact appropriate; Speech is normal rate, volume and prosody and not pressured; no psychomotor retardation present; thought process is organized and goal directed; Thought content is on family dynamics, loss of his parents, tx; otherwise pertinent to relevant topics and without any delusional content, paranoid ideations or grandiosity; intermittent passive SI which is chronic; no HI. There is no evidence of perceptual disturbance and denies AVH. Patients insight and judgment fair Diagnostics Vital Signs (24Hr): Vital Signs - 24 hr 04/10/23 18:00 04/11/23 08:24 Temperature 97.4 F 97.6 F Pulse Rate 98 83 Respiratory Rate 16 16 Blood Pressure 122/61 126/79 Pulse Oximetry 98 97 Oxygen Delivery Method Room Air Room Air BMI result Body Mass Index 29.1 Labs 04/09/23 11:42 Labs: Laboratory Results - last 48 hr 04/09/23 11:42 Sodium 137 Potassium 4.0 Chloride 102 Carbon Dioxide 30 H Anion Gap 9 L BUN 11 Creatinine 0.84 Estim Creat Clear Calc 119.3 Estimated GFR > 60 Random Glucose 133 H Calcium 10.1 Total Bilirubin 0.3 AST 31 ALT 37 Alkaline Phosphatase 55 Total Protein 7.5 Albumin 4.3 Medications Medications Current Medications Acetaminophen (Acetaminophen 325 Mg Tablet) 650 mg PO Q6H PRN PRN Reason: Headache/Pain Mild Scale (1-3) Last Admin: 04/08/23 07:58 Dose: 650 mg Al Hydroxide/Mg Hydroxide (Magnesium Hydrox/Alum Hydrox 30 Ml Oral.Susp) 30 ml PO Q6H PRN PRN Reason: Heartburn/Nausea Last Admin: 04/08/23 13:28 Dose: 30 ml Allopurinol (Allopurinol 300 Mg Tablet) 300 mg PO DAILY PRN PRN Reason: for Gout flare Clonazepam (Clonazepam 0.5 Mg Tablet) 0.5 mg PO TID [facility] Last Admin: 04/11/23 08:27 Dose: 0.5 mg Clonidine HCl (Clonidine Hcl 0.1 Mg Tablet) 0.1 mg PO Q4H PRN; Protocol PRN Reason: anxiety Last Admin: 04/09/23 21:04 Dose: 0.1 mg Famotidine (Famotidine 20 Mg Tablet) 20 mg PO BID [facility] Last Admin: 04/11/23 08:27 Dose: 20 mg Folic Acid (Folic Acid 1 Mg Tablet) 1 mg PO DAILY [facility] Last Admin: 04/11/23 08:27 Dose: 1 mg Gabapentin (Gabapentin 300 Mg Capsule) 300 mg PO TID [facility] Last Admin: 04/11/23 08:27 Dose: 300 mg Hydroxyzine HCl (Hydroxyzine Hcl 25 Mg Tablet) 25 mg PO Q6H PRN PRN Reason: Anxiety Last Admin: 04/09/23 21:04 Dose: 25 mg Lisinopril (Lisinopril 10 Mg Tablet) 10 mg PO DAILY [facility]; Protocol Last Admin: 04/11/23 08:26 Dose: 10 mg Magnesium Hydroxide (Milk Of Magnesia 30 Ml Oral.Susp) 30 ml PO DAILY PRN PRN Reason: Constipation Methocarbamol (Methocarbamol 500 Mg Tablet) 500 mg PO TID@0800,1400,2000 PRN PRN Reason: muscle aches/Pain Last Admin: 04/09/23 21:03 Dose: 500 mg Oxycodone HCl (Oxycodone Hcl Immed Release 5 Mg Tablet) 5 mg PO BID PRN PRN Reason: pain Last Admin: 04/11/23 09:11 Dose: 5 mg Ropinirole HCl (Ropinirole Hcl 1 Mg Tablet) 1 mg PO BEDTIME [facility] Last Admin: 04/10/23 20:33 Dose: 1 mg Sertraline HCl (Sertraline Hcl 50 Mg Tablet) 150 mg PO DAILY [facility] Last Admin: 04/11/23 08:26 Dose: 150 mg Trazodone HCl (Trazodone Hcl 100 Mg Tablet) 100 mg PO BEDTIME PRN PRN Reason: Sleep Last Admin: 04/10/23 20:33 Dose: 100 mg Allergies Allergies Allergy/AdvReac Type Severity Reaction Status Date / Time No Known Allergies Allergy Verified 04/06/23 00:57 Assessment & Plan Assessment & Plan (1) MDD (major depressive disorder), recurrent severe, without psychosis: Status: Acute Code(s): F33.2 - Major depressive disorder, recurrent severe without psychotic features (2) Fatty liver: Status: Acute Code(s): K76.0 - Fatty (change of) liver, not elsewhere classified Plan HPI: Patient is a 52-year-old male with long history of depression, stutter, alcohol dependence, gout, chronic back pain, psoriasis who presents for worsening depression in the face of psychosocial stressors, untreated depression and conflict with his brother. Patient reports that he has been depressed most of his life but he hit it. He said he has been living with his parents his entire life and new at 17 years old that he would struggle living on without them if they . Patient's mom 3 years ago from an ugly malone with cancer which worsened his depression; this past February his father also from cancer, significantly worsening his depression at which time patient attempted suicide by cutting his wrist. After he was hospitalized he remained sober from alcohol for about 2 weeks but then relapsed, again drinking heavily since early March. Patient and his brother both live in the house there father owned and this past week his brother said that patient had to leave the house, triggering patient to become suicidal who then self presented, not wanting to hurt himself. Patient currently in alcohol withdrawal, drinking up to 15 drinks per night; denies any history of alcohol withdrawal seizures. No AVH; denies any history of manic episodes or behaviors. Impression/plan: Patient reports depression most of his life; it seems that stutter, present from a young age has been a debilitating experience and patient became dependent on his parents, living with them throughout his life. With his parents now , his brother wants him evicted from the house. He said he hid his depression which has largely gone untreated except for low dose of Zoloft for a couple years. Patient has chronic pain and is chronically on Percocet. Hospital course: 04/07 withdrawal symptoms doing delaying, mood improving; continue with current treatment plan. Still some moderate scores on CIWA, however mostly low scores; Will likely DC CIWA today or tomorrow. 04/08 continue tx plan; dc [facility] 04/09 Reports mood better but right-sided abdominal pain; still with some diarrhea but less; obtained labs, LFTs WNL. Patient reports past diagnosis of fatty liver; will continue to monitor. Patient ambivalent about a program; ambivalent about returning to his home though realizing he has legal rights to 04/10 Patient reports that his mood remains much better; no SI. Abdominal pain also seems to be resolving. Patient angry at is older brother who tried to kick him out of the house. Patient says he knows that that is not allowing bowl and he could return there however he does not like being around his brother who is mean, authoritative and triggering; he says that his brother told him to go cut his wrist and when he did, he did not even call 911. Patient says when he thinks about this sometimes he just wishes he could be and with his parents however he denies any active SI. Patient was offered to live with his other brother which patient is strongly considering; he thinks that in the meantime his other family members Will intervene with this housing situation. Patient does not want to go to a CSS, substance abuse program. Talked about sobriety and patient said that is really tough... He says he has tried many times before and is not optimistic that he will be able to stay sober. He says he is not going to start making new friends now and that all his friends he has met at the local bars... [employer] talked about AA and the possibility of making new friends there; however patient says At 52 he does not see himself making this change. He does agree he needs to cut down his drinking. 04/11 remains stable; will proceed with dispo planning Plan CV Q 15 minutes Continue Zoloft to 150 mg; Continue clonazepam 0.5 mg t.i.d; home medication Continue gabapentin 300 mg however will increase it to q.i.d. for alcohol withdrawal Continue oxycodone 5 mg; patient may take it with acetaminophen Make allopurinol p.r.n.; patient has not taking it in years and only uses as a p.r.n. Continue lisinopril for BP Continue ropinirole for restless leg Reason for continued inpatient stay Substantial Risk for: stable for discharge Time Spent With Patient Time: Total time managing care of this patient today ____ minutes.
[2023-04-11 10:25] LABS: Appearance Urine Clear; Color Urine Yellow; Glucose Urine UA 250 mg/dL (Negative); Leukocyte Esterase Urine Negative (Negative); Nitrite Urine Negative (Negative); PH 7.5 (5.0-9.0); Specific Gravity - Urine 1.015 (1.005-1.025); Urine Blood Negative (Negative); Urine Ketones Negative (Negative); Urine Protein Negative (Neg-Trace)
[2023-04-11 10:30] LABS: Bacteria Urine None Seen (None Seen); Hyaline Casts Urine 0-2 /LPF (0-2); RBC Urine 0-2 /HPF (0-2); Squamous Epithelial Cell Urine 0-2 /HPF (0-2); WBC Urine 0-5 /HPF (0-5)
[2023-04-11 16:46] VITALS: BP 124/68; PULSE 86; RESP 16; TEMP 36.7; O2SAT 98
[2023-04-11] MEDS: rOPINIRole HCL 1 MG TABLET PO (20:50)
[2023-04-11] MEDS: traZODone HCL 100 MG TABLET PO (20:50)
[2023-04-11] MEDS: QUEtiapine Fumarate 50 MG TABLET PO (20:51)
[2023-04-12] MEDS: Acetaminophen 325 MG TABLET 650 MG PO (03:49)
[2023-04-12 06:00] VITALS: BP 111/64; PULSE 74; RESP 18; TEMP 36.4; O2SAT 98
[2023-04-12 07:00] VITALS: BMI 30.8
[2023-04-12] MEDS: Sertraline HCL 50 MG TABLET 150 MG PO (08:44)
[2023-04-12] MEDS: Gabapentin 300 MG CAPSULE PO ×3 (08:44→20:02)
[2023-04-12] MEDS: clonazePAM 0.5 MG TABLET PO ×3 (08:44→20:02)
[2023-04-12] MEDS: Famotidine 20 MG TABLET PO ×2 (08:44→20:02)
[2023-04-12] MEDS: lisinopriL 10 MG TABLET PO (08:44)
[2023-04-12] MEDS: Folic Acid 1 MG TABLET PO (08:44)
[2023-04-12] MEDS: oxyCODONE HCl Immed Release 5 MG TABLET PO ×2 (08:47→16:02)
--- NOTE | 2023-04-12 12:24 | P.PNPSI_ITS ---
Subjective Subjective Date of Service: 04/12/23 Reason For Visit: Major Depressive Disorder, single episode Interim History: Met with patient; discussed with team Patient reports mood remains improved; little anxious about figuring out aftercare plans, whether he is going back to his original house and how his other brothers are going to help out. Patient says he does not need any refills and plans to discharge tomorrow. He said the only thing he will need is Zoloft since dose was raised. Patient sleeping and eating well. Overall feels better at baseline. Mental Status Exam Mental Status Exam Narrative: Pt is alert and oriented; behavior is cooperative, friendly and calm; patient is not in distress; dressed in casual attire, good hygiene; mood is described as good and affect congruent, overall brighter, calm; eye contact appropriate; Speech is normal rate, volume and prosody and not pressured; no psychomotor retardation present; thought process is organized and goal directed; Thought content is on family dynamics, loss of his parents, tx; otherwise pertinent to relevant topics and without any delusional content, paranoid ideations or grandiosity; intermittent passive SI which is chronic; no HI. There is no evidence of perceptual disturbance and denies AVH. Patients insight and judgment fair Diagnostics Vital Signs (24Hr): Vital Signs - 24 hr 04/11/23 16:46 04/12/23 06:00 Temperature 98.1 F 97.6 F Pulse Rate 86 74 Respiratory Rate 16 18 Blood Pressure 124/68 111/64 Pulse Oximetry 98 98 Oxygen Delivery Method Room Air Room Air BMI result Body Mass Index 29.1 Labs 04/09/23 11:42 Labs: Laboratory Results - last 48 hr 04/11/23 10:14 Urine Color Yellow Urine Appearance Clear Urine pH 7.5 Ur Specific Jensen 1.015 Urine Protein Negative Urine Glucose (UA) 250 H Urine Ketones Negative Urine Blood Negative Urine Nitrite Negative Ur Leukocyte Esterase Negative Urine RBC 0-2 Urine WBC 0-5 Ur Squamous Epith Cells 0-2 Urine Bacteria None Seen Hyaline Casts 0-2 Medications Medications Current Medications Acetaminophen (Acetaminophen 325 Mg Tablet) 650 mg PO Q6H PRN PRN Reason: Headache/Pain Mild Scale (1-3) Last Admin: 04/12/23 03:49 Dose: 650 mg Al Hydroxide/Mg Hydroxide (Magnesium Hydrox/Alum Hydrox 30 Ml Oral.Susp) 30 ml PO Q6H PRN PRN Reason: Heartburn/Nausea Last Admin: 04/08/23 13:28 Dose: 30 ml Allopurinol (Allopurinol 300 Mg Tablet) 300 mg PO DAILY PRN PRN Reason: for Gout flare Clonazepam (Clonazepam 0.5 Mg Tablet) 0.5 mg PO TID [facility] Last Admin: 04/12/23 08:44 Dose: 0.5 mg Clonidine HCl (Clonidine Hcl 0.1 Mg Tablet) 0.1 mg PO Q4H PRN; Protocol PRN Reason: anxiety Last Admin: 04/09/23 21:04 Dose: 0.1 mg Famotidine (Famotidine 20 Mg Tablet) 20 mg PO BID [facility] Last Admin: 04/12/23 08:44 Dose: 20 mg Folic Acid (Folic Acid 1 Mg Tablet) 1 mg PO DAILY [facility] Last Admin: 04/12/23 08:44 Dose: 1 mg Gabapentin (Gabapentin 300 Mg Capsule) 300 mg PO TID [facility] Last Admin: 04/12/23 08:44 Dose: 300 mg Hydroxyzine HCl (Hydroxyzine Hcl 25 Mg Tablet) 25 mg PO Q6H PRN PRN Reason: Anxiety Last Admin: 04/09/23 21:04 Dose: 25 mg Lisinopril (Lisinopril 10 Mg Tablet) 10 mg PO DAILY [facility]; Protocol Last Admin: 04/12/23 08:44 Dose: 10 mg Magnesium Hydroxide (Milk Of Magnesia 30 Ml Oral.Susp) 30 ml PO DAILY PRN PRN Reason: Constipation Methocarbamol (Methocarbamol 500 Mg Tablet) 500 mg PO TID@0800,1400,2000 PRN PRN Reason: muscle aches/Pain Last Admin: 04/09/23 21:03 Dose: 500 mg Oxycodone HCl (Oxycodone Hcl Immed Release 5 Mg Tablet) 5 mg PO BID PRN PRN Reason: pain Last Admin: 04/12/23 08:47 Dose: 5 mg Quetiapine Fumarate (Quetiapine Fumarate 50 Mg Tablet) 50 mg PO BEDTIME [facility] Last Admin: 04/11/23 20:51 Dose: 50 mg Quetiapine Fumarate (Quetiapine Fumarate 50 Mg Tablet) 50 mg PO BEDTIME PRN PRN Reason: insomnia Ropinirole HCl (Ropinirole Hcl 1 Mg Tablet) 1 mg PO BEDTIME [facility] Last Admin: 04/11/23 20:50 Dose: 1 mg Sertraline HCl (Sertraline Hcl 50 Mg Tablet) 150 mg PO DAILY [facility] Last Admin: 04/12/23 08:44 Dose: 150 mg Trazodone HCl (Trazodone Hcl 100 Mg Tablet) 100 mg PO BEDTIME PRN PRN Reason: Sleep Last Admin: 04/11/23 20:50 Dose: 100 mg Allergies Allergies Allergy/AdvReac Type Severity Reaction Status Date / Time No Known Allergies Allergy Verified 04/06/23 00:57 Assessment & Plan Assessment & Plan (1) MDD (major depressive disorder), recurrent severe, without psychosis: Status: Acute Code(s): F33.2 - Major depressive disorder, recurrent severe without psychotic features (2) Fatty liver: Status: Acute Code(s): K76.0 - Fatty (change of) liver, not elsewhere classified Plan HPI: Patient is a 52-year-old male with long history of depression, stutter, alcohol dependence, gout, chronic back pain, psoriasis who presents for worsening depression in the face of psychosocial stressors, untreated depression and conflict with his brother. Patient reports that he has been depressed most of his life but he hit it. He said he has been living with his parents his entire life and new at 17 years old that he would struggle living on without them if they . Patient's mom 3 years ago from an ugly malone with cancer which worsened his depression; this past February his father also from cancer, significantly worsening his depression at which time patient attempted suicide by cutting his wrist. After he was hospitalized he remained sober from alcohol for about 2 weeks but then relapsed, again drinking heavily since early March. Patient and his brother both live in the house there father owned and this past week his brother said that patient had to leave the house, triggering patient to become suicidal who then self presented, not wanting to hurt himself. Patient currently in alcohol withdrawal, drinking up to 15 drinks per night; denies any history of alcohol withdrawal seizures. No AVH; denies any history of manic episodes or behaviors. Impression/plan: Patient reports depression most of his life; it seems that stutter, present from a young age has been a debilitating experience and patient became dependent on his parents, living with them throughout his life. With his parents now , his brother wants him evicted from the house. He said he hid his depression which has largely gone untreated except for low dose of Zoloft for a couple years. Patient has chronic pain and is chronically on Percocet. Hospital course: 04/07 withdrawal symptoms doing delaying, mood improving; continue with current treatment plan. Still some moderate scores on CIWA, however mostly low scores; Will likely DC [facility] today or tomorrow. 04/08 continue tx plan; dc [facility] 04/09 Reports mood better but right-sided abdominal pain; still with some diarrhea but less; obtained labs, LFTs WNL. Patient reports past diagnosis of fatty liver; will continue to monitor. Patient ambivalent about a program; ambivalent about returning to his home though realizing he has legal rights to 04/10 Patient reports that his mood remains much better; no SI. Abdominal pain also seems to be resolving. Patient angry at is older brother who tried to kick him out of the house. Patient says he knows that that is not allowing bowl and he could return there however he does not like being around his brother who is mean, authoritative and triggering; he says that his brother told him to go cut his wrist and when he did, he did not even call 911. Patient says when he thinks about this sometimes he just wishes he could be and with his parents however he denies any active SI. Patient was offered to live with his other brother which patient is strongly considering; he thinks that in the meantime his other family members Will intervene with this housing situation. Patient does not want to go to a CSS, substance abuse program. Talked about sobriety and patient said that is really tough... He says he has tried many times before and is not optimistic that he will be able to stay sober. He says he is not going to start making new friends now and that all his friends he has met at the local bars... [employer] talked about AA and the possibility of making new friends there; however patient says At 52 he does not see himself making this change. He does agree he needs to cut down his drinking. 04/11 remains stable; will proceed with dispo plannin 04/12 patient reports doing well, good mood, anxious about discharge but feels capable about and willing it, especially with the help of his family. Planning to discharge tomorrow. He is not in imminent risk for harm to self or others and appropriate to return to the community for care Plan CV Q 15 minutes Continue Zoloft to 150 mg; Continue clonazepam 0.5 mg t.i.d; home medication Continue gabapentin 300 mg however will increase it to q.i.d. for alcohol withdrawal Continue oxycodone 5 mg; patient may take it with acetaminophen Make allopurinol p.r.n.; patient has not taking it in years and only uses as a p.r.n. Continue lisinopril for BP Continue ropinirole for restless leg Patient educated on: diagnosis, medication risk/benefits and substance abuse Informed Consent: understands Reason for continued inpatient stay Substantial Risk for: stable for discharge Time Spent With Patient Time: Total time managing care of this patient today ____ minutes.
[2023-04-12 18:00] VITALS: BP 120/66; PULSE 102; TEMP 36.7; O2SAT 96
[2023-04-12] MEDS: QUEtiapine Fumarate 50 MG TABLET PO (20:02)
[2023-04-12] MEDS: rOPINIRole HCL 1 MG TABLET PO (20:02)
[2023-04-12] MEDS: traZODone HCL 100 MG TABLET PO (20:02)
[2023-04-13] MEDS: Acetaminophen 325 MG TABLET 650 MG PO ×3 (02:08→19:06)
[2023-04-13] MEDS: methocarbamoL 500 MG TABLET PO ×2 (02:08→20:19)
[2023-04-13 08:15] VITALS: BP 142/72; PULSE 102; RESP 18; TEMP 36.8; O2SAT 97
[2023-04-13] MEDS: lisinopriL 10 MG TABLET PO (08:22)
[2023-04-13] MEDS: Sertraline HCL 50 MG TABLET 150 MG PO (08:23)
[2023-04-13] MEDS: Gabapentin 300 MG CAPSULE PO ×3 (08:23→20:14)
[2023-04-13] MEDS: clonazePAM 0.5 MG TABLET PO ×3 (08:23→20:13)
[2023-04-13] MEDS: Famotidine 20 MG TABLET PO ×2 (08:23→20:14)
[2023-04-13] MEDS: Folic Acid 1 MG TABLET PO (08:23)
[2023-04-13] MEDS: oxyCODONE HCl Immed Release 5 MG TABLET PO ×2 (08:35→16:31)
--- NOTE | 2023-04-13 09:50 | P.DS_ITS ---
DS: Providers Provider Date of Service: 04/13/23 Date of admission: 04/06/23 00:30 Date of discharge: 04/13/23 Primary care physician: Unknown Physician Attending physician on admission: Ahmet Winter Consults: 04/06/23 00:57 Consult to Hospitalist Routine Comment: Consulting Provider: Hospitalist Reason For Exam: medical h&p Attending physician on discharge: Ahmet Winter DS: Diagnosis Discharge Diagnosis (1) MDD (major depressive disorder), recurrent severe, without psychosis: Status: Acute (2) Fatty liver: Status: Acute DS: Medications Discharge Medications Home Medications: Home Medications Medication Instructions Recorded Confirmed allopurinol 300 mg tablet 300 mg PO DAILY 04/06/23 04/06/23 clonazepam 0.5 mg tablet 0.5 mg PO TID PRN Anxiety 04/06/23 04/06/23 folic acid 1 mg tablet 1 mg PO DAILY 04/06/23 04/06/23 gabapentin 300 mg capsule 300 mg PO BID 04/06/23 04/06/23 lisinopril 10 mg tablet 10 mg PO DAILY 04/06/23 04/06/23 methocarbamol 500 mg tablet 500 mg PO TID@0800,1400,2000 PRN 04/06/23 04/06/23 Pain oxycodone-acetaminophen 5 mg-325 1 tab PO BID PRN pain 04/06/23 04/06/23 mg tablet risankizumab-rzaa 150 mg/mL 150 mg subcut Q12W 04/06/23 04/06/23 subcutaneous syringe ropinirole 1 mg tablet 1 mg PO BEDTIME 04/06/23 04/06/23 sertraline 100 mg tablet 100 mg PO DAILY 04/06/23 04/06/23 trazodone 100 mg tablet 100 mg PO BEDTIME PRN Sleep 04/06/23 04/06/23 zolpidem 5 mg tablet 5 mg PO BEDTIME PRN Sleep 04/06/23 04/06/23 Data Data Completed and Pending Completed studies during hospitalization [Text1]: 04/07/23 04/09/23 04/11/23 06:56 11:42 10:14 Sodium 141 137 Potassium 4.0 4.0 Chloride 104 102 Carbon Dioxide 29 30 H Anion Gap 12 9 L BUN 7 L 11 Creatinine 0.88 0.84 Estim Creat Clear Calc 113.9 119.3 Estimated GFR > 60 > 60 Random Glucose 133 H Fasting Glucose 138 H Estimat Average Glucose 111 Hemoglobin A1c % 5.5 Calcium 10.3 H 10.1 Total Bilirubin 0.6 0.3 AST 26 31 ALT 31 37 Alkaline Phosphatase 56 55 Total Protein 7.5 7.5 Albumin 4.3 4.3 Triglycerides 152 H Cholesterol 151 LDL Cholesterol, Calc 82 HDL Cholesterol 39 L Vitamin B12 344 Folate 12.2 TSH 0.92 Urine Color Yellow Urine Appearance Clear Urine pH 7.5 Ur Specific [place] 1.015 Urine Protein Negative Urine Glucose (UA) 250 H Urine Ketones Negative Urine Blood Negative Urine Nitrite Negative Ur Leukocyte Esterase Negative Urine RBC 0-2 Urine WBC 0-5 Ur Squamous Epith Cells 0-2 Urine Bacteria None Seen Hyaline Casts 0-2 DS: Summary Time Spent with Patient Time attestation: Total time managing care of this patient today ____ minutes. Discharge Plan Discharge Referrals: Physician,Unknown J [Primary Care Provider] - 1 Week Discharge Medications: No Action ropinirole 1 mg tablet 1 mg PO BEDTIME clonazepam 0.5 mg tablet 0.5 mg PO TID PRN (Reason: Anxiety) sertraline 100 mg tablet 100 mg PO DAILY oxycodone-acetaminophen 5-325 mg tablet 1 tab PO BID PRN (Reason: pain) trazodone 100 mg tablet 100 mg PO BEDTIME PRN (Reason: Sleep) lisinopril 10 mg tablet 10 mg PO DAILY gabapentin 300 mg capsule 300 mg PO BID folic acid 1 mg Tablet 1 mg PO DAILY allopurinol 300 mg Tablet 300 mg PO DAILY zolpidem 5 mg tablet 5 mg PO BEDTIME PRN (Reason: Sleep) risankizumab-rzaa 150 mg/mL Syringe 150 mg SUBCUT Q12W methocarbamol 500 mg tablet 500 mg PO TID@0800,1400,2000 PRN (Reason: Pain)
[2023-04-13 12:06] VITALS: TEMP 37.7
--- NOTE | 2023-04-13 13:51 | HO.PSYCHPN ---
Subjective Subjective Date of Service: 04/13/23 Reason For Visit: Major Depressive Disorder, single episode Interim History: Met with patient; discussed with team Patient opened up more about history and struggles with having his parents gone. He has been to therapy 3 times and says it brought up to many painful feelings; however with further discussion patient understands better that while therapy can feel difficult initially, it typically makes it easier to deal with once feelings. Patient agreed that he has never really given either medication or therapy a try and he is better able to see that it is possible he could get out of this cycle of addiction, loneliness then self-deprecating thoughts. Also discussed more patient's history and some of the events that led into his increased drinking and depression Discussed that patient's family is petitioned the court for Section 35, worried about his continued addiction to alcohol; patient received the news feeling cared about and agreed that he does need help. In the morning patient had slight fever; COVID test revealed positive result Patient prefers Tylenol (says ibuprofen causes GI upset) Mental Status Exam Mental Status Exam Narrative: Pt is alert and oriented; behavior is cooperative, friendly and calm; patient is not in distress; dressed in casual attire, good hygiene; mood is described as good and affect congruent, overall brighter, calm; eye contact appropriate; Speech is normal rate, volume and prosody and not pressured; no psychomotor retardation present; thought process is organized and goal directed; Thought content is on family dynamics, loss of his parents, tx; otherwise pertinent to relevant topics and without any delusional content, paranoid ideations or grandiosity; intermittent passive SI which is chronic but no active, intent or plans; no HI. There is no evidence of perceptual disturbance and denies AVH. Patients insight and judgment fair Diagnostics Vital Signs (24Hr): Vital Signs - 24 hr 04/12/23 18:00 04/13/23 08:15 04/13/23 12:06 Temperature 98.0 F 98.2 F 99.9 F Pulse Rate 102 H 102 H Respiratory Rate 18 Blood Pressure 120/66 142/72 H Pulse Oximetry 96 97 Oxygen Delivery Method Room Air Room Air BMI result Body Mass Index 30.8 Labs 04/09/23 11:42 Medications Medications Current Medications Acetaminophen (Acetaminophen 325 Mg Tablet) 650 mg PO Q6H PRN PRN Reason: Headache/Pain Mild Scale (1-3) Last Admin: 04/13/23 11:54 Dose: 650 mg Al Hydroxide/Mg Hydroxide (Magnesium Hydrox/Alum Hydrox 30 Ml Oral.Susp) 30 ml PO Q6H PRN PRN Reason: Heartburn/Nausea Last Admin: 04/08/23 13:28 Dose: 30 ml Allopurinol (Allopurinol 300 Mg Tablet) 300 mg PO DAILY PRN PRN Reason: for Gout flare Benzocaine (Throat Lozenge, Medicated Lozenge) 1 lozenge MUCOUS MEM Q2H PRN PRN Reason: Sore Throat Clonazepam (Clonazepam 0.5 Mg Tablet) 0.5 mg PO TID [facility] Last Admin: 04/13/23 08:23 Dose: 0.5 mg Clonidine HCl (Clonidine Hcl 0.1 Mg Tablet) 0.1 mg PO Q4H PRN; Protocol PRN Reason: anxiety Last Admin: 04/09/23 21:04 Dose: 0.1 mg Famotidine (Famotidine 20 Mg Tablet) 20 mg PO BID [facility] Last Admin: 04/13/23 08:23 Dose: 20 mg Folic Acid (Folic Acid 1 Mg Tablet) 1 mg PO DAILY [facility] Last Admin: 04/13/23 08:23 Dose: 1 mg Gabapentin (Gabapentin 300 Mg Capsule) 300 mg PO TID [facility] Last Admin: 04/13/23 08:23 Dose: 300 mg Hydroxyzine HCl (Hydroxyzine Hcl 25 Mg Tablet) 25 mg PO Q6H PRN PRN Reason: Anxiety Last Admin: 04/09/23 21:04 Dose: 25 mg Lisinopril (Lisinopril 10 Mg Tablet) 10 mg PO DAILY [facility]; Protocol Last Admin: 04/13/23 08:22 Dose: 10 mg Magnesium Hydroxide (Milk Of Magnesia 30 Ml Oral.Susp) 30 ml PO DAILY PRN PRN Reason: Constipation Methocarbamol (Methocarbamol 500 Mg Tablet) 500 mg PO TID@0800,1400,2000 PRN PRN Reason: muscle aches/Pain Last Admin: 04/13/23 02:08 Dose: 500 mg Oxycodone HCl (Oxycodone Hcl Immed Release 5 Mg Tablet) 5 mg PO BID PRN PRN Reason: pain Last Admin: 04/13/23 08:35 Dose: 5 mg Quetiapine Fumarate (Quetiapine Fumarate 50 Mg Tablet) 50 mg PO BEDTIME [facility] Last Admin: 04/12/23 20:02 Dose: 50 mg Quetiapine Fumarate (Quetiapine Fumarate 50 Mg Tablet) 50 mg PO BEDTIME PRN PRN Reason: insomnia Ropinirole HCl (Ropinirole Hcl 1 Mg Tablet) 1 mg PO BEDTIME [facility] Last Admin: 04/12/23 20:02 Dose: 1 mg Sertraline HCl (Sertraline Hcl 50 Mg Tablet) 150 mg PO DAILY [facility] Last Admin: 04/13/23 08:23 Dose: 150 mg Trazodone HCl (Trazodone Hcl 100 Mg Tablet) 100 mg PO BEDTIME PRN PRN Reason: Sleep Last Admin: 04/12/23 20:02 Dose: 100 mg Allergies Allergies Allergy/AdvReac Type Severity Reaction Status Date / Time No Known Allergies Allergy Verified 04/06/23 00:57 Assessment & Plan Assessment & Plan (1) MDD (major depressive disorder), recurrent severe, without psychosis: Status: Acute Code(s): F33.2 - Major depressive disorder, recurrent severe without psychotic features (2) Fatty liver: Status: Acute Code(s): K76.0 - Fatty (change of) liver, not elsewhere classified Plan HPI: Patient is a 52-year-old male with long history of depression, stutter, alcohol dependence, gout, chronic back pain, psoriasis who presents for worsening depression in the face of psychosocial stressors, untreated depression and conflict with his brother. Patient reports that he has been depressed most of his life but he hit it. He said he has been living with his parents his entire life and new at 17 years old that he would struggle living on without them if they . Patient's mom 3 years ago from an ugly malone with cancer which worsened his depression; this past February his father also from cancer, significantly worsening his depression at which time patient attempted suicide by cutting his wrist. After he was hospitalized he remained sober from alcohol for about 2 weeks but then relapsed, again drinking heavily since early March. Patient and his brother both live in the house there father owned and this past week his brother said that patient had to leave the house, triggering patient to become suicidal who then self presented, not wanting to hurt himself. Patient currently in alcohol withdrawal, drinking up to 15 drinks per night; denies any history of alcohol withdrawal seizures. No AVH; denies any history of manic episodes or behaviors. Impression/plan: Patient reports depression most of his life; it seems that stutter, present from a young age has been a debilitating experience and patient became dependent on his parents, living with them throughout his life. With his parents now , his brother wants him evicted from the house. He said he hid his depression which has largely gone untreated except for low dose of Zoloft for a couple years. Patient has chronic pain and is chronically on Percocet. Hospital course: 04/07 withdrawal symptoms doing delaying, mood improving; continue with current treatment plan. Still some moderate scores on CIWA, however mostly low scores; Will likely DC CIWA today or tomorrow. 04/08 continue tx plan; dc [facility] 04/09 Reports mood better but right-sided abdominal pain; still with some diarrhea but less; obtained labs, LFTs WNL. Patient reports past diagnosis of fatty liver; will continue to monitor. Patient ambivalent about a program; ambivalent about returning to his home though realizing he has legal rights to 04/10 Patient reports that his mood remains much better; no SI. Abdominal pain also seems to be resolving. Patient angry at is older brother who tried to kick him out of the house. Patient says he knows that that is not allowing bowl and he could return there however he does not like being around his brother who is mean, authoritative and triggering; he says that his brother told him to go cut his wrist and when he did, he did not even call 911. Patient says when he thinks about this sometimes he just wishes he could be and with his parents however he denies any active SI. Patient was offered to live with his other brother which patient is strongly considering; he thinks that in the meantime his other family members Will intervene with this housing situation. Patient does not want to go to a CSS, substance abuse program. Talked about sobriety and patient said that is really tough... He says he has tried many times before and is not optimistic that he will be able to stay sober. He says he is not going to start making new friends now and that all his friends he has met at the local bars... Public Health Nurse talked about AA and the possibility of making new friends there; however patient says At 52 he does not see himself making this change. He does agree he needs to cut down his drinking. 04/11 remains stable; will proceed with dispo getachewn 04/12 patient reports doing well, good mood, anxious about discharge but feels capable about and willing it, especially with the help of his family. Planning to discharge tomorrow. He is not in imminent risk for harm to self or others and appropriate to return to the community for care 04/13 patient opening up more; agrees that he needs to give both therapy and medication a longer trial and expresses hope of continuing to progress. Accepts family's decision to petition court for section 35; social work working on finding out results but it seems that bench warrant was transferred over to [place] -Patient COVID positive; unit precautions -given the fact that bench warrant exists for Section 35 and COVID positive, will keep patient on the unit instead of planned discharge Plan CV Q 15 minutes Continue Zoloft to 150 mg; Continue clonazepam 0.5 mg t.i.d; home medication Continue gabapentin 300 mg however will increase it to q.i.d. for alcohol withdrawal Continue oxycodone 5 mg; patient may take it with acetaminophen Make allopurinol p.r.n.; patient has not taking it in years and only uses as a p.r.n. Continue lisinopril for BP Continue ropinirole for restless leg Patient educated on: diagnosis, medication risk/benefits, substance abuse, therapeutic strategies and medical condition Informed Consent: understands Reason for continued inpatient stay Substantial Risk for: stable for discharge Time Spent With Patient Time: Total time managing care of this patient today ____ minutes.
[2023-04-13] MEDS: Throat Lozenge, Medicated LOZENGE 1 LOZENGE MUCOUS MEM (14:05)
[2023-04-13 15:33] LABS: Influenza A PCR NEGATIVE (Negative); Influenza B PCR NEGATIVE (Negative); Resp Syncy Virus RNA Qual PCR NEGATIVE (Negative); SARS COV2 PCR INHOUSE POSITIVE (Negative)
[2023-04-13 17:43] VITALS: BP 161/78; PULSE 121; RESP 16; TEMP 38.7; O2SAT 96
--- NOTE | 2023-04-13 18:38 | PC.NURSE ---
PT reporting headache and sore throat. COVID came back POSITIVE. PT isolated from milieu, febrile at this time @ 101.6 and tachycardic @ 121 bpm (Dr. Winter aware). Respirations even and unlabored, resting and in no apparent distress. Plan of care ongoing.
[2023-04-13] MEDS: Ondansetron ODT 4 MG TAB.RAPDIS TRANSLINGU (19:06)
[2023-04-13] MEDS: Mirtazapine 7.5 MG TABLET PO (20:13)
[2023-04-13] MEDS: rOPINIRole HCL 1 MG TABLET PO (20:14)
[2023-04-13] MEDS: traZODone HCL 100 MG TABLET PO (20:14)
[2023-04-13] MEDS: QUEtiapine Fumarate 50 MG TABLET PO (20:19)
[2023-04-14 09:22] VITALS: BP 129/75; PULSE 114; RESP 16; TEMP 37.4; O2SAT 96
[2023-04-14] MEDS: Folic Acid 1 MG TABLET PO (09:52)
[2023-04-14] MEDS: Gabapentin 300 MG CAPSULE PO ×3 (09:52→20:44)
[2023-04-14] MEDS: clonazePAM 0.5 MG TABLET PO ×3 (09:52→20:45)
[2023-04-14] MEDS: lisinopriL 10 MG TABLET PO (09:52)
[2023-04-14] MEDS: Famotidine 20 MG TABLET PO ×2 (09:52→20:45)
[2023-04-14] MEDS: Sertraline HCL 50 MG TABLET 150 MG PO (09:52)
[2023-04-14] MEDS: oxyCODONE HCl Immed Release 5 MG TABLET PO ×2 (09:58→17:39)
[2023-04-14] MEDS: Acetaminophen 325 MG TABLET 650 MG PO ×2 (09:58→20:44)
[2023-04-14] MEDS: Throat Lozenge, Medicated LOZENGE 1 LOZENGE MUCOUS MEM ×4 (09:58→20:44)
--- NOTE | 2023-04-14 16:11 | P.PNPSI_ITS ---
Subjective Subjective Date of Service: 04/14/23 Reason For Visit: Major Depressive Disorder, single episode Subjective Notes: Conditional Voluntary Healthcare Proxy: No Guardianship: No Medical Problems Affecting Mental Status: No Interim History: met with patient. Discussed with Nursing. Chart reviewed. In group room due to positive COVID test yesterday. Throat a little sore. Aware of plan for Section 35 which was supposed to happen yesterday. Reports wanting rehab services and some stability. Did endorse anxiety and grief and this being the holiday without both of his parents. That being said feels that he is doing okay from a mood perspective overall. Would like to have more than 3 months stability from a substance perspective. Sleep okay. Energy okay. No med concerns. Medication Compliance: Yes Side effects from medications: No Attending Groups: No Review of Systems Acute medical concerns: No Review of Systems Review of Systems Throat is a little sore. Mental Status Exam Mental Status Exam Narrative: pleasant. Engaged. Fairly presented. Hospital clothing. Some anxiety evident, but reports mood has significantly improved. No SI. No HI. No agitation or psychosis. Insight and judgment fair Diagnostics Vital Signs (24Hr): Vital Signs - 24 hr 04/13/23 17:43 04/14/23 09:22 Temperature 101.6 F H 99.4 F Pulse Rate 121 H 114 H Respiratory Rate 16 16 Blood Pressure 161/78 H 129/75 Pulse Oximetry 96 96 Oxygen Delivery Method Room Air Room Air BMI result Body Mass Index 30.8 Labs 04/09/23 11:42 Labs: Laboratory Results - last 48 hr 04/13/23 14:36 Influenza Type A (PCR) NEGATIVE Influenza Type B (PCR) NEGATIVE RSV RNA Qual (PCR) NEGATIVE SARS-CoV-2 RNA (RT-PCR) POSITIVE A Medications Medications Current Medications Acetaminophen (Acetaminophen 325 Mg Tablet) 650 mg PO Q6H PRN PRN Reason: Headache/Pain Mild Scale (1-3) Last Admin: 04/14/23 09:58 Dose: 650 mg Al Hydroxide/Mg Hydroxide (Magnesium Hydrox/Alum Hydrox 30 Ml Oral.Susp) 30 ml PO Q6H PRN PRN Reason: Heartburn/Nausea Last Admin: 04/08/23 13:28 Dose: 30 ml Allopurinol (Allopurinol 300 Mg Tablet) 300 mg PO DAILY PRN PRN Reason: for Gout flare Benzocaine (Throat Lozenge, Medicated Lozenge) 1 lozenge MUCOUS MEM Q2H PRN PRN Reason: Sore Throat Last Admin: 04/14/23 13:04 Dose: 1 lozenge Clonazepam (Clonazepam 0.5 Mg Tablet) 0.5 mg PO TID [facility] Last Admin: 04/14/23 14:36 Dose: 0.5 mg Clonidine HCl (Clonidine Hcl 0.1 Mg Tablet) 0.1 mg PO Q4H PRN; Protocol PRN Reason: anxiety Last Admin: 04/09/23 21:04 Dose: 0.1 mg Famotidine (Famotidine 20 Mg Tablet) 20 mg PO BID [facility] Last Admin: 04/14/23 09:52 Dose: 20 mg Folic Acid (Folic Acid 1 Mg Tablet) 1 mg PO DAILY [facility] Last Admin: 04/14/23 09:52 Dose: 1 mg Gabapentin (Gabapentin 300 Mg Capsule) 300 mg PO TID [facility] Last Admin: 04/14/23 14:36 Dose: 300 mg Hydroxyzine HCl (Hydroxyzine Hcl 25 Mg Tablet) 25 mg PO Q6H PRN PRN Reason: Anxiety Last Admin: 04/09/23 21:04 Dose: 25 mg Lisinopril (Lisinopril 10 Mg Tablet) 10 mg PO DAILY [facility]; Protocol Last Admin: 04/14/23 09:52 Dose: 10 mg Magnesium Hydroxide (Milk Of Magnesia 30 Ml Oral.Susp) 30 ml PO DAILY PRN PRN Reason: Constipation Methocarbamol (Methocarbamol 500 Mg Tablet) 500 mg PO TID@0800,1400,2000 PRN PRN Reason: muscle aches/Pain Last Admin: 04/13/23 20:19 Dose: 500 mg Mirtazapine (Mirtazapine 7.5 Mg Tablet) 7.5 mg PO BEDTIME [facility] Last Admin: 04/13/23 20:13 Dose: 7.5 mg Ondansetron HCl (Ondansetron Odt 4 Mg Tab.Rapdis) 4 mg TRANSLINGU Q4H PRN PRN Reason: Nausea Last Admin: 04/13/23 19:06 Dose: 4 mg Oxycodone HCl (Oxycodone Hcl Immed Release 5 Mg Tablet) 5 mg PO BID PRN PRN Reason: pain Last Admin: 04/14/23 09:58 Dose: 5 mg Quetiapine Fumarate (Quetiapine Fumarate 50 Mg Tablet) 50 mg PO BEDTIME PRN PRN Reason: insomnia Last Admin: 04/13/23 20:19 Dose: 50 mg Ropinirole HCl (Ropinirole Hcl 1 Mg Tablet) 1 mg PO BEDTIME [facility] Last Admin: 04/13/23 20:14 Dose: 1 mg Sertraline HCl (Sertraline Hcl 50 Mg Tablet) 150 mg PO DAILY [facility] Last Admin: 04/14/23 09:52 Dose: 150 mg Trazodone HCl (Trazodone Hcl 100 Mg Tablet) 100 mg PO BEDTIME PRN PRN Reason: Sleep Last Admin: 04/13/23 20:14 Dose: 100 mg Allergies Allergies Allergy/AdvReac Type Severity Reaction Status Date / Time No Known Allergies Allergy Verified 04/06/23 00:57 Assessment & Plan Assessment & Plan (1) MDD (major depressive disorder), recurrent severe, without psychosis: Status: Acute Code(s): F33.2 - Major depressive disorder, recurrent severe without psychotic features (2) Fatty liver: Status: Acute Code(s): K76.0 - Fatty (change of) liver, not elsewhere classified Plan HPI: Patient is a 52-year-old male with long history of depression, stutter, alcohol dependence, gout, chronic back pain, psoriasis who presents for worsening depression in the face of psychosocial stressors, untreated depression and conflict with his brother. Patient reports that he has been depressed most of his life but he hit it. He said he has been living with his parents his entire life and new at 17 years old that he would struggle living on without them if they . Patient's mom 3 years ago from an ugly malone with cancer which worsened his depression; this past February his father also from cancer, significantly worsening his depression at which time patient attempted suicide by cutting his wrist. After he was hospitalized he remained sober from alcohol for about 2 weeks but then relapsed, again drinking heavily since early March. Patient and his brother both live in the house there father owned and this past week his brother said that patient had to leave the house, triggering patient to become suicidal who then self presented, not wanting to hurt himself. Patient currently in alcohol withdrawal, drinking up to 15 drinks per night; denies any history of alcohol withdrawal seizures. No AVH; denies any history of manic episodes or behaviors. Impression/plan: Patient reports depression most of his life; it seems that stutter, present from a young age has been a debilitating experience and patient became dependent on his parents, living with them throughout his life. With his parents now , his brother wants him evicted from the house. He said he hid his depression which has largely gone untreated except for low dose of Zoloft for a couple years. Patient has chronic pain and is chronically on Percocet. Hospital course: 04/07 withdrawal symptoms doing delaying, mood improving; continue with current treatment plan. Still some moderate scores on CIWA, however mostly low scores; Will likely DC CIWA today or tomorrow. 04/08 continue tx plan; dc [facility] 04/09 Reports mood better but right-sided abdominal pain; still with some diarrhea but less; obtained labs, LFTs WNL. Patient reports past diagnosis of fatty liver; will continue to monitor. Patient ambivalent about a program; ambivalent about returning to his home though realizing he has legal rights to 04/10 Patient reports that his mood remains much better; no SI. Abdominal pain also seems to be resolving. Patient angry at is older brother who tried to kick him out of the house. Patient says he knows that that is not allowing bowl and he could return there however he does not like being around his brother who is mean, authoritative and triggering; he says that his brother told him to go cut his wrist and when he did, he did not even call 911. Patient says when he thinks about this sometimes he just wishes he could be and with his parents however he denies any active SI. Patient was offered to live with his other brother which patient is strongly considering; he thinks that in the meantime his other family members Will intervene with this housing situation. Patient does not want to go to a CSS, substance abuse program. Talked about sobriety and patient said that is really tough... He says he has tried many times before and is not optimistic that he will be able to stay sober. He says he is not going to start making new friends now and that all his friends he has met at the local bars... Alarm Security Or Surveillance Monitor talked about AA and the possibility of making new friends there; however patient says At 52 he does not see himself making this change. He does agree he needs to cut down his drinking. 04/11 remains stable; will proceed with dispo plannin 04/12 patient reports doing well, good mood, anxious about discharge but feels capable about and willing it, especially with the help of his family. Planning to discharge tomorrow. He is not in imminent risk for harm to self or others and appropriate to return to the community for care 04/14/2023: No changes to current plan. covid positive awaiting s 35 Plan CV Q 15 minutes Continue Zoloft to 150 mg; Continue clonazepam 0.5 mg t.i.d; home medication Continue gabapentin 300 mg however will increase it to q.i.d. for alcohol withdrawal Continue oxycodone 5 mg; patient may take it with acetaminophen Make allopurinol p.r.n.; patient has not taking it in years and only uses as a p.r.n. Continue lisinopril for BP Continue ropinirole for restless leg Reason for continued inpatient stay Substantial Risk for: other (covid positive awaiting s 35) Time Spent With Patient Time: Total time managing care of this patient today ____ minutes.
[2023-04-14 17:40] VITALS: BP 115/76; PULSE 84; TEMP 2.3; TEMP 36.2
[2023-04-14] MEDS: rOPINIRole HCL 1 MG TABLET PO (20:44)
[2023-04-14] MEDS: traZODone HCL 100 MG TABLET PO (20:45)
[2023-04-14] MEDS: Mirtazapine 7.5 MG TABLET PO (20:45)
[2023-04-14] MEDS: QUEtiapine Fumarate 50 MG TABLET PO (20:45)
[2023-04-14] MEDS: methocarbamoL 500 MG TABLET PO (20:46)
[2023-04-15] MEDS: Throat Lozenge, Medicated LOZENGE 1 LOZENGE MUCOUS MEM ×6 (01:07→21:29)
[2023-04-15] MEDS: oxyCODONE HCl Immed Release 5 MG TABLET PO ×2 (01:07→08:24)
[2023-04-15 08:12] VITALS: BP 120/70; PULSE 104; RESP 16; TEMP 36.4; O2SAT 98
[2023-04-15] MEDS: Sertraline HCL 50 MG TABLET 150 MG PO (08:22)
[2023-04-15] MEDS: Folic Acid 1 MG TABLET PO (08:22)
[2023-04-15] MEDS: clonazePAM 0.5 MG TABLET PO ×3 (08:22→21:31)
[2023-04-15] MEDS: lisinopriL 10 MG TABLET PO (08:22)
[2023-04-15] MEDS: Gabapentin 300 MG CAPSULE PO ×3 (08:22→21:31)
[2023-04-15] MEDS: Famotidine 20 MG TABLET PO ×2 (08:23→21:30)
--- NOTE | 2023-04-15 15:25 | HO.PSYCHPN ---
Subjective Subjective Date of Service: 04/15/23 Reason For Visit: Major Depressive Disorder, single episode Interim History: met with patient. Discussed with Nursing. Chart reviewed. In group room due to positive COVID test 04/13/23. Congestion today . Some depression and anxiety. Feeling supporetd. Still wants rehab services and some stability-would like to have more than 3 months stability from a substance perspective. Sleep okay. Energy okay. No med concerns. Medication Compliance: Yes Side effects from medications: No Attending Groups: No Review of Systems Acute medical concerns: No Review of Systems Review of Systems Throat is a little sore and congestion. Mental Status Exam Mental Status Exam Narrative: pleasant. Engaged. Fairly presented. Hospital clothing. Some anxiety evident, but reports mood has significantly improved. No SI. No HI. No agitation or psychosis. Insight and judgment fair Diagnostics Vital Signs (24Hr): Vital Signs - 24 hr 04/14/23 17:40 04/15/23 08:12 Temperature 36.2 F L 97.5 F Pulse Rate 84 104 H Respiratory Rate 16 Blood Pressure 115/76 120/70 Pulse Oximetry 98 Oxygen Delivery Method Room Air BMI result Body Mass Index 30.8 Labs 04/09/23 11:42 Labs: Laboratory Results - last 48 hr 04/13/23 14:36 Influenza Type A (PCR) NEGATIVE Influenza Type B (PCR) NEGATIVE RSV RNA Qual (PCR) NEGATIVE SARS-CoV-2 RNA (RT-PCR) POSITIVE A Medications Medications Current Medications Acetaminophen (Acetaminophen 325 Mg Tablet) 650 mg PO Q6H PRN PRN Reason: Headache/Pain Mild Scale (1-3) Last Admin: 04/14/23 20:44 Dose: 650 mg Al Hydroxide/Mg Hydroxide (Magnesium Hydrox/Alum Hydrox 30 Ml Oral.Susp) 30 ml PO Q6H PRN PRN Reason: Heartburn/Nausea Last Admin: 04/08/23 13:28 Dose: 30 ml Allopurinol (Allopurinol 300 Mg Tablet) 300 mg PO DAILY PRN PRN Reason: for Gout flare Benzocaine (Throat Lozenge, Medicated Lozenge) 1 lozenge MUCOUS MEM Q2H PRN PRN Reason: Sore Throat Last Admin: 04/15/23 12:03 Dose: 1 lozenge Clonazepam (Clonazepam 0.5 Mg Tablet) 0.5 mg PO TID LALITHA Last Admin: 04/15/23 08:22 Dose: 0.5 mg Clonidine HCl (Clonidine Hcl 0.1 Mg Tablet) 0.1 mg PO Q4H PRN; Protocol PRN Reason: anxiety Last Admin: 04/09/23 21:04 Dose: 0.1 mg Famotidine (Famotidine 20 Mg Tablet) 20 mg PO BID LALITHA Last Admin: 04/15/23 08:23 Dose: 20 mg Folic Acid (Folic Acid 1 Mg Tablet) 1 mg PO DAILY LALITHA Last Admin: 04/15/23 08:22 Dose: 1 mg Gabapentin (Gabapentin 300 Mg Capsule) 300 mg PO TID LALITHA Last Admin: 04/15/23 08:22 Dose: 300 mg Hydroxyzine HCl (Hydroxyzine Hcl 25 Mg Tablet) 25 mg PO Q6H PRN PRN Reason: Anxiety Last Admin: 04/09/23 21:04 Dose: 25 mg Lisinopril (Lisinopril 10 Mg Tablet) 10 mg PO DAILY LALITHA; Protocol Last Admin: 04/15/23 08:22 Dose: 10 mg Magnesium Hydroxide (Milk Of Magnesia 30 Ml Oral.Susp) 30 ml PO DAILY PRN PRN Reason: Constipation Methocarbamol (Methocarbamol 500 Mg Tablet) 500 mg PO TID@0800,1400,2000 PRN PRN Reason: muscle aches/Pain Last Admin: 04/14/23 20:46 Dose: 500 mg Mirtazapine (Mirtazapine 7.5 Mg Tablet) 7.5 mg PO BEDTIME LALITHA Last Admin: 04/14/23 20:45 Dose: 7.5 mg Ondansetron HCl (Ondansetron Odt 4 Mg Tab.Rapdis) 4 mg TRANSLINGU Q4H PRN PRN Reason: Nausea Last Admin: 04/13/23 19:06 Dose: 4 mg Oxycodone HCl (Oxycodone Hcl Immed Release 5 Mg Tablet) 5 mg PO BID PRN PRN Reason: pain Last Admin: 04/15/23 08:24 Dose: 5 mg Quetiapine Fumarate (Quetiapine Fumarate 50 Mg Tablet) 50 mg PO BEDTIME PRN PRN Reason: insomnia Last Admin: 04/14/23 20:45 Dose: 50 mg Ropinirole HCl (Ropinirole Hcl 1 Mg Tablet) 1 mg PO BEDTIME LALITHA Last Admin: 04/14/23 20:44 Dose: 1 mg Sertraline HCl (Sertraline Hcl 50 Mg Tablet) 150 mg PO DAILY LALITHA Last Admin: 04/15/23 08:22 Dose: 150 mg Trazodone HCl (Trazodone Hcl 100 Mg Tablet) 100 mg PO BEDTIME PRN PRN Reason: Sleep Last Admin: 04/14/23 20:45 Dose: 100 mg Allergies Allergies Allergy/AdvReac Type Severity Reaction Status Date / Time No Known Allergies Allergy Verified 04/06/23 00:57 Assessment & Plan Assessment & Plan (1) MDD (major depressive disorder), recurrent severe, without psychosis: Status: Acute Code(s): F33.2 - Major depressive disorder, recurrent severe without psychotic features (2) Fatty liver: Status: Acute Code(s): K76.0 - Fatty (change of) liver, not elsewhere classified Plan HPI: Patient is a 52-year-old male with long history of depression, stutter, alcohol dependence, gout, chronic back pain, psoriasis who presents for worsening depression in the face of psychosocial stressors, untreated depression and conflict with his brother. Patient reports that he has been depressed most of his life but he hit it. He said he has been living with his parents his entire life and new at 17 years old that he would struggle living on without them if they . Patient's mom 3 years ago from an ugly malone with cancer which worsened his depression; this past February his father also from cancer, significantly worsening his depression at which time patient attempted suicide by cutting his wrist. After he was hospitalized he remained sober from alcohol for about 2 weeks but then relapsed, again drinking heavily since early March. Patient and his brother both live in the house there father owned and this past week his brother said that patient had to leave the house, triggering patient to become suicidal who then self presented, not wanting to hurt himself. Patient currently in alcohol withdrawal, drinking up to 15 drinks per night; denies any history of alcohol withdrawal seizures. No AVH; denies any history of manic episodes or behaviors. Impression/plan: Patient reports depression most of his life; it seems that stutter, present from a young age has been a debilitating experience and patient became dependent on his parents, living with them throughout his life. With his parents now , his brother wants him evicted from the house. He said he hid his depression which has largely gone untreated except for low dose of Zoloft for a couple years. Patient has chronic pain and is chronically on Percocet. Hospital course: 04/07 withdrawal symptoms doing delaying, mood improving; continue with current treatment plan. Still some moderate scores on CIWA, however mostly low scores; Will likely DC CIWA today or tomorrow. 04/08 continue tx plan; dc [facility] 04/09 Reports mood better but right-sided abdominal pain; still with some diarrhea but less; obtained labs, LFTs WNL. Patient reports past diagnosis of fatty liver; will continue to monitor. Patient ambivalent about a program; ambivalent about returning to his home though realizing he has legal rights to 04/10 Patient reports that his mood remains much better; no SI. Abdominal pain also seems to be resolving. Patient angry at is older brother who tried to kick him out of the house. Patient says he knows that that is not allowing bowl and he could return there however he does not like being around his brother who is mean, authoritative and triggering; he says that his brother told him to go cut his wrist and when he did, he did not even call 911. Patient says when he thinks about this sometimes he just wishes he could be and with his parents however he denies any active SI. Patient was offered to live with his other brother which patient is strongly considering; he thinks that in the meantime his other family members Will intervene with this housing situation. Patient does not want to go to a CSS, substance abuse program. Talked about sobriety and patient said that is really tough... He says he has tried many times before and is not optimistic that he will be able to stay sober. He says he is not going to start making new friends now and that all his friends he has met at the local bars... System Support Administrator talked about AA and the possibility of making new friends there; however patient says At 52 he does not see himself making this change. He does agree he needs to cut down his drinking. 04/11 remains stable; will proceed with dispo plannin 04/12 patient reports doing well, good mood, anxious about discharge but feels capable about and willing it, especially with the help of his family. Planning to discharge tomorrow. He is not in imminent risk for harm to self or others and appropriate to return to the community for care 04/14/2023: No changes to current plan. covid positive awaiting s 35 04/15: decongestant ordered Plan CV Q 15 minutes Continue Zoloft to 150 mg; Continue clonazepam 0.5 mg t.i.d; home medication Continue gabapentin 300 mg however will increase it to q.i.d. for alcohol withdrawal Continue oxycodone 5 mg; patient may take it with acetaminophen Make allopurinol p.r.n.; patient has not taking it in years and only uses as a p.r.n. Continue lisinopril for BP Continue ropinirole for restless leg Reason for continued inpatient stay Substantial Risk for: rapid decompensation Time Spent With Patient Time: Total time managing care of this patient today ____ minutes.
[2023-04-15] MEDS: Acetaminophen 325 MG TABLET 650 MG PO ×2 (16:06→22:02)
[2023-04-15] MEDS: hydrOXYzine HCL 25 MG TABLET PO (16:06)
[2023-04-15] MEDS: Pseudoephedrine HCL 30 MG TABLET PO (16:44)
[2023-04-15 17:25] VITALS: BP 128/59; PULSE 105; RESP 16; TEMP 36.5; O2SAT 96
[2023-04-15] MEDS: Mirtazapine 7.5 MG TABLET PO (21:29)
[2023-04-15 21:30] VITALS: BP 145/66; PULSE 90; TEMP 37.1
[2023-04-15] MEDS: rOPINIRole HCL 1 MG TABLET PO (21:30)
[2023-04-15] MEDS: traZODone HCL 100 MG TABLET PO (21:30)
[2023-04-15] MEDS: QUEtiapine Fumarate 50 MG TABLET PO (21:31)
[2023-04-15] MEDS: methocarbamoL 500 MG TABLET PO (22:03)
[2023-04-16] MEDS: Pseudoephedrine HCL 30 MG TABLET PO ×3 (00:10→16:28)
[2023-04-16] MEDS: Throat Lozenge, Medicated LOZENGE 1 LOZENGE MUCOUS MEM ×4 (00:10→20:50)
[2023-04-16] MEDS: oxyCODONE HCl Immed Release 5 MG TABLET PO ×2 (02:49→14:36)
[2023-04-16] MEDS: Acetaminophen 325 MG TABLET 650 MG PO ×3 (02:49→16:28)
[2023-04-16] MEDS: cloNIDine HCL 0.1 MG TABLET PO ×3 (02:49→14:35)
--- NOTE | 2023-04-16 08:54 | P.PNPSI_ITS ---
Subjective Subjective Date of Service: 04/16/23 Reason For Visit: Major Depressive Disorder, single episode Interim History: Met with patient; discussed with team; reviewed notes Patient starting to feel better and COVID symptoms resolving; remains with overall good mood and optimistic about sobriety, even about possible Section 35. Mental Status Exam Mental Status Exam Narrative: Pt is alert and oriented; behavior is cooperative, friendly and calm; patient is not in distress; dressed in casual attire, good hygiene; mood is described as better and affect congruent, overall brighter, calm; eye contact appropriate; Speech is normal rate, volume and prosody and not pressured; no psychomotor retardation present; thought process is organized and goal directed; Thought content is on family dynamics, loss of his parents, tx; otherwise pertinent to relevant topics and without any delusional content, paranoid ideations or grandiosity; no SI; no HI. There is no evidence of perceptual disturbance and denies AVH. Patients insight and judgment fair Diagnostics Vital Signs (24Hr): Vital Signs - 24 hr 04/15/23 17:25 04/15/23 21:30 Temperature 97.7 F 98.8 F Pulse Rate 105 H 90 Respiratory Rate 16 Blood Pressure 128/59 L 145/66 H Pulse Oximetry 96 Oxygen Delivery Method Room Air BMI result Body Mass Index 30.8 Labs 04/09/23 11:42 Medications Medications Current Medications Acetaminophen (Acetaminophen 325 Mg Tablet) 650 mg PO Q6H PRN PRN Reason: Headache/Pain Mild Scale (1-3) Last Admin: 04/16/23 02:49 Dose: 650 mg Al Hydroxide/Mg Hydroxide (Magnesium Hydrox/Alum Hydrox 30 Ml Oral.Susp) 30 ml PO Q6H PRN PRN Reason: Heartburn/Nausea Last Admin: 04/08/23 13:28 Dose: 30 ml Allopurinol (Allopurinol 300 Mg Tablet) 300 mg PO DAILY PRN PRN Reason: for Gout flare Benzocaine (Throat Lozenge, Medicated Lozenge) 1 lozenge MUCOUS MEM Q2H PRN PRN Reason: Sore Throat Last Admin: 04/16/23 00:10 Dose: 1 lozenge Clonazepam (Clonazepam 0.5 Mg Tablet) 0.5 mg PO TID LALITHA Last Admin: 04/15/23 21:31 Dose: 0.5 mg Clonidine HCl (Clonidine Hcl 0.1 Mg Tablet) 0.1 mg PO Q4H PRN; Protocol PRN Reason: anxiety Last Admin: 04/16/23 02:49 Dose: 0.1 mg Famotidine (Famotidine 20 Mg Tablet) 20 mg PO BID [facility] Last Admin: 04/15/23 21:30 Dose: 20 mg Folic Acid (Folic Acid 1 Mg Tablet) 1 mg PO DAILY LALITHA Last Admin: 04/15/23 08:22 Dose: 1 mg Gabapentin (Gabapentin 300 Mg Capsule) 300 mg PO TID LALITHA Last Admin: 04/15/23 21:31 Dose: 300 mg Hydroxyzine HCl (Hydroxyzine Hcl 25 Mg Tablet) 25 mg PO Q6H PRN PRN Reason: Anxiety Last Admin: 04/15/23 16:06 Dose: 25 mg Lisinopril (Lisinopril 10 Mg Tablet) 10 mg PO DAILY [facility]; Protocol Last Admin: 04/15/23 08:22 Dose: 10 mg Magnesium Hydroxide (Milk Of Magnesia 30 Ml Oral.Susp) 30 ml PO DAILY PRN PRN Reason: Constipation Methocarbamol (Methocarbamol 500 Mg Tablet) 500 mg PO TID@0800,1400,2000 PRN PRN Reason: muscle aches/Pain Last Admin: 04/15/23 22:03 Dose: 500 mg Mirtazapine (Mirtazapine 7.5 Mg Tablet) 7.5 mg PO BEDTIME [facility] Last Admin: 04/15/23 21:29 Dose: 7.5 mg Ondansetron HCl (Ondansetron Odt 4 Mg Tab.Rapdis) 4 mg TRANSLINGU Q4H PRN PRN Reason: Nausea Last Admin: 04/13/23 19:06 Dose: 4 mg Oxycodone HCl (Oxycodone Hcl Immed Release 5 Mg Tablet) 5 mg PO BID PRN PRN Reason: pain Last Admin: 04/16/23 02:49 Dose: 5 mg Pseudoephedrine HCl (Pseudoephedrine Hcl 30 Mg Tablet) 30 mg PO Q6H PRN PRN Reason: Congestion Last Admin: 04/16/23 00:10 Dose: 30 mg Quetiapine Fumarate (Quetiapine Fumarate 50 Mg Tablet) 50 mg PO BEDTIME PRN PRN Reason: insomnia Last Admin: 04/15/23 21:31 Dose: 50 mg Ropinirole HCl (Ropinirole Hcl 1 Mg Tablet) 1 mg PO BEDTIME LALITHA Last Admin: 04/15/23 21:30 Dose: 1 mg Sertraline HCl (Sertraline Hcl 50 Mg Tablet) 150 mg PO DAILY [facility] Last Admin: 04/15/23 08:22 Dose: 150 mg Trazodone HCl (Trazodone Hcl 100 Mg Tablet) 100 mg PO BEDTIME PRN PRN Reason: Sleep Last Admin: 04/15/23 21:30 Dose: 100 mg Allergies Allergies Allergy/AdvReac Type Severity Reaction Status Date / Time No Known Allergies Allergy Verified 04/06/23 00:57 Assessment & Plan Assessment & Plan (1) MDD (major depressive disorder), recurrent severe, without psychosis: Status: Acute Code(s): F33.2 - Major depressive disorder, recurrent severe without psychotic features (2) Fatty liver: Status: Acute Code(s): K76.0 - Fatty (change of) liver, not elsewhere classified Plan HPI: Patient is a 52-year-old male with long history of depression, stutter, alcohol dependence, gout, chronic back pain, psoriasis who presents for worsening depression in the face of psychosocial stressors, untreated depression and conflict with his brother. Patient reports that he has been depressed most of his life but he hit it. He said he has been living with his parents his entire life and new at 17 years old that he would struggle living on without them if they . Patient's mom 3 years ago from an ugly malone with cancer which worsened his depression; this past February his father also from cancer, significantly worsening his depression at which time patient attempted suicide by cutting his wrist. After he was hospitalized he remained sober from alcohol for about 2 weeks but then relapsed, again drinking heavily since early March. Patient and his brother both live in the house there father owned and this past week his brother said that patient had to leave the house, triggering patient to become suicidal who then self presented, not wanting to hurt himself. Patient currently in alcohol withdrawal, drinking up to 15 drinks per night; denies any history of alcohol withdrawal seizures. No AVH; denies any history of manic episodes or behaviors. Impression/plan: Patient reports depression most of his life; it seems that stutter, present from a young age has been a debilitating experience and patient became dependent on his parents, living with them throughout his life. With his parents now , his brother wants him evicted from the house. He said he hid his depression which has largely gone untreated except for low dose of Zoloft for a couple years. Patient has chronic pain and is chronically on Percocet. Hospital course: 04/07 withdrawal symptoms doing delaying, mood improving; continue with current treatment plan. Still some moderate scores on CIWA, however mostly low scores; Will likely DC CIWA today or tomorrow. 04/08 continue tx plan; dc [facility] 04/09 Reports mood better but right-sided abdominal pain; still with some diarrhea but less; obtained labs, LFTs WNL. Patient reports past diagnosis of fatty liver; will continue to monitor. Patient ambivalent about a program; ambivalent about returning to his home though realizing he has legal rights to 04/10 Patient reports that his mood remains much better; no SI. Abdominal pain also seems to be resolving. Patient angry at is older brother who tried to kick him out of the house. Patient says he knows that that is not allowing bowl and he could return there however he does not like being around his brother who is mean, authoritative and triggering; he says that his brother told him to go cut his wrist and when he did, he did not even call 911. Patient says when he thinks about this sometimes he just wishes he could be and with his parents however he denies any active SI. Patient was offered to live with his other brother which patient is strongly considering; he thinks that in the meantime his other family members Will intervene with this housing situation. Patient does not want to go to a CSS, substance abuse program. Talked about sobriety and patient said that is really tough... He says he has tried many times before and is not optimistic that he will be able to stay sober. He says he is not going to start making new friends now and that all his friends he has met at the local bars... Equipment Cleaner And Tester talked about AA and the possibility of making new friends there; however patient says At 52 he does not see himself making this change. He does agree he needs to cut down his drinking. 04/11 remains stable; will proceed with howardo nick 04/12 patient reports doing well, good mood, anxious about discharge but feels capable about and willing it, especially with the help of his family. Planning to discharge tomorrow. He is not in imminent risk for harm to self or others and appropriate to return to the community for care 04/13 patient opening up more; agrees that he needs to give both therapy and medication a longer trial and expresses hope of continuing to progress. Accepts family's decision to petition court for section 35; social work working on finding out results but it seems that bench warrant was transferred over to [place] -Patient COVID positive; unit precautions -given the fact that bench warrant exists for Section 35 and COVID positive, will keep patient on the unit instead of planned discharge 04/16 Patient's remains in overall good mood, optimistic; will continue to engage in therapy. No SI. Though he remains at risk for relapse and mood dysregulation, he is not in imminent risk for harm to self or others. Patient appropriate for discharge to the community. Plan CV Q 15 minutes Continue Zoloft to 150 mg; Continue clonazepam 0.5 mg t.i.d; home medication Continue gabapentin 300 mg however will increase it to q.i.d. for alcohol withdrawal Continue oxycodone 5 mg; patient may take it with acetaminophen Make allopurinol p.r.n.; patient has not taking it in years and only uses as a p.r.n. Continue lisinopril for BP Continue ropinirole for restless leg Patient educated on: diagnosis and medical condition Informed Consent: understands Reason for continued inpatient stay Substantial Risk for: stable for discharge Time Spent With Patient Time: Total time managing care of this patient today ____ minutes.
[2023-04-16 09:15] VITALS: BP 116/65; PULSE 93; RESP 18; TEMP 36.7; O2SAT 97
[2023-04-16] MEDS: Folic Acid 1 MG TABLET PO (09:15)
[2023-04-16] MEDS: Famotidine 20 MG TABLET PO ×2 (09:15→20:21)
[2023-04-16] MEDS: Gabapentin 300 MG CAPSULE PO ×3 (09:15→20:21)
[2023-04-16] MEDS: Sertraline HCL 50 MG TABLET 150 MG PO (09:15)
[2023-04-16] MEDS: clonazePAM 0.5 MG TABLET PO ×3 (09:15→20:22)
[2023-04-16] MEDS: lisinopriL 10 MG TABLET PO (09:15)
[2023-04-16] MEDS: hydrOXYzine HCL 25 MG TABLET PO (09:25)
[2023-04-16] MEDS: Milk of Magnesia 30 ML ORAL.SUSP PO (09:26)
[2023-04-16] MEDS: methocarbamoL 500 MG TABLET PO (09:38)
[2023-04-16 16:30] VITALS: BP 110/71; PULSE 91; RESP 16; TEMP 36.6; O2SAT 98
[2023-04-16] MEDS: Mirtazapine 7.5 MG TABLET PO (20:22)
[2023-04-16] MEDS: rOPINIRole HCL 1 MG TABLET PO (20:22)
[2023-04-16] MEDS: traZODone HCL 100 MG TABLET PO (20:50)
[2023-04-16] MEDS: QUEtiapine Fumarate 50 MG TABLET PO (20:50)
[2023-04-17] MEDS: hydrOXYzine HCL 25 MG TABLET PO (01:02)
[2023-04-17] MEDS: Pseudoephedrine HCL 30 MG TABLET PO (01:03)
[2023-04-17] MEDS: Throat Lozenge, Medicated LOZENGE 1 LOZENGE MUCOUS MEM ×3 (01:03→10:58)
[2023-04-17] MEDS: oxyCODONE HCl Immed Release 5 MG TABLET PO ×2 (01:09→10:57)
--- NOTE | 2023-04-17 09:20 | PM.PSYDC ---
DS: Providers Provider Date of Service: 04/17/23 Date of admission: 04/06/23 00:30 Date of discharge: 04/17/23 Primary care physician: Unknown Physician Attending physician on admission: Ahmet Winter Consults: 04/06/23 00:57 Consult to Hospitalist Routine Comment: Consulting Provider: Hospitalist Reason For Exam: medical h&p Attending physician on discharge: Ahmet Winter DS: Diagnosis Discharge Diagnosis (1) MDD (major depressive disorder), recurrent severe, without psychosis: Status: Acute (2) Fatty liver: Status: Acute DS: Medications Discharge Medications Home Medications: Home Medications Medication Instructions Recorded Confirmed allopurinol 300 mg tablet 300 mg PO DAILY 04/06/23 04/06/23 clonazepam 0.5 mg tablet 0.5 mg PO TID PRN Anxiety 04/06/23 04/06/23 folic acid 1 mg tablet 1 mg PO DAILY 04/06/23 04/06/23 gabapentin 300 mg capsule 300 mg PO BID 04/06/23 04/06/23 lisinopril 10 mg tablet 10 mg PO DAILY 04/06/23 04/06/23 methocarbamol 500 mg tablet 500 mg PO TID@0800,1400,2000 PRN 04/06/23 04/06/23 Pain oxycodone-acetaminophen 5 mg-325 1 tab PO BID PRN pain 04/06/23 04/06/23 mg tablet risankizumab-rzaa 150 mg/mL 150 mg subcut Q12W 04/06/23 04/06/23 subcutaneous syringe ropinirole 1 mg tablet 1 mg PO BEDTIME 04/06/23 04/06/23 trazodone 100 mg tablet 100 mg PO BEDTIME PRN Sleep 04/06/23 04/06/23 Previous Rx's Medication Instructions Recorded clonidine HCl 0.1 mg tablet 0.1 mg PO Q4H PRN anxiety 30 days 04/13/23 #60 tabs famotidine 20 mg tablet 20 mg PO BID 30 days #60 tabs 04/13/23 hydroxyzine HCl 25 mg tablet 25 mg PO Q6H PRN Anxiety 30 days 04/13/23 #60 tabs quetiapine 50 mg tablet 50 mg PO BEDTIME PRN insomnia 30 04/13/23 days #30 tabs sertraline 100 mg tablet 150 mg (1.5 x 100 mg) PO DAILY 30 04/13/23 days #45 tabs Mental Status Exam Mental Status Exam Narrative: Pt is alert and oriented; behavior is cooperative, friendly and calm; patient is not in distress; dressed in casual attire, good hygiene; mood is described as better and affect congruent, overall brighter, calm; eye contact appropriate; Speech is normal rate, volume and prosody and not pressured; no psychomotor retardation present; thought process is organized and goal directed; Thought content is on family dynamics, loss of his parents, tx; otherwise pertinent to relevant topics and without any delusional content, paranoid ideations or grandiosity; no SI; no HI. There is no evidence of perceptual disturbance and denies AVH. Patients insight and judgment fair Data Data Completed and Pending Completed studies during hospitalization [Text1]: 04/11/23 04/13/23 10:14 14:36 Urine Color Yellow Urine Appearance Clear Urine pH 7.5 Ur Specific [place] 1.015 Urine Protein Negative Urine Glucose (UA) 250 H Urine Ketones Negative Urine Blood Negative Urine Nitrite Negative Ur Leukocyte Esterase Negative Urine RBC 0-2 Urine WBC 0-5 Ur Squamous Epith Cells 0-2 Urine Bacteria None Seen Hyaline Casts 0-2 Influenza Type A (PCR) NEGATIVE Influenza Type B (PCR) NEGATIVE RSV RNA Qual (PCR) NEGATIVE SARS-CoV-2 RNA (RT-PCR) POSITIVE A DS: Summary Hospital Course Hospital Course: HPI: Patient is a 52-year-old male with long history of depression, stutter, alcohol dependence, gout, chronic back pain, psoriasis who presents for worsening depression in the face of psychosocial stressors, untreated depression and conflict with his brother. Patient reports that he has been depressed most of his life but he hit it. He said he has been living with his parents his entire life and new at 17 years old that he would struggle living on without them if they . Patient's mom 3 years ago from an ugly malone with cancer which worsened his depression; this past February his father also from cancer, significantly worsening his depression at which time patient attempted suicide by cutting his wrist. After he was hospitalized he remained sober from alcohol for about 2 weeks but then relapsed, again drinking heavily since early March. Patient and his brother both live in the house there father owned and this past week his brother said that patient had to leave the house, triggering patient to become suicidal who then self presented, not wanting to hurt himself. On admission, Patient in alcohol withdrawal, drinking up to 15 drinks per night; denies any history of alcohol withdrawal seizures. No AVH; denies any history of manic episodes or behaviors. Impression/plan: Patient reports depression most of his life; it seems that stutter, present from a young age has been a debilitating experience and patient became dependent on his parents, living with them throughout his life. With his parents now , his brother wants him evicted from the house. He said he hid his depression which has largely gone untreated except for low dose of Zoloft for a couple years. Patient has chronic pain and is chronically on Percocet. Hospital course: 04/07 withdrawal symptoms doing delaying, mood improving; continue with current treatment plan. Still some moderate scores on CIWA, however mostly low scores; Will likely DC CIWA today or tomorrow. 04/08 continue tx plan; dc [facility] 04/09 Reports mood better but right-sided abdominal pain; still with some diarrhea but less; obtained labs, LFTs WNL. Patient reports past diagnosis of fatty liver; will continue to monitor. Patient ambivalent about a program; ambivalent about returning to his home though realizing he has legal rights to 04/10 Patient reports that his mood remains much better; no SI. Abdominal pain also seems to be resolving. Patient angry at is older brother who tried to kick him out of the house. Patient says he knows that that is not allowing bowl and he could return there however he does not like being around his brother who is mean, authoritative and triggering; he says that his brother told him to go cut his wrist and when he did, he did not even call 911. Patient says when he thinks about this sometimes he just wishes he could be and with his parents however he denies any active SI. Patient was offered to live with his other brother which patient is strongly considering; he thinks that in the meantime his other family members Will intervene with this housing situation. Patient does not want to go to a CSS, substance abuse program. Talked about sobriety and patient said that is really tough... He says he has tried many times before and is not optimistic that he will be able to stay sober. He says he is not going to start making new friends now and that all his friends he has met at the local bars... Colorectal Surgeon talked about AA and the possibility of making new friends there; however patient says At 52 he does not see himself making this change. He does agree he needs to cut down his drinking. 04/12 patient reports doing well, good mood, anxious about discharge but feels capable about and willing it, especially with the help of his family. Planning to discharge tomorrow. He is not in imminent risk for harm to self or others and appropriate to return to the community for care 04/13 patient opening up more; agrees that he needs to give both therapy and medication a longer trial and expresses hope of continuing to progress. Accepts family's decision to petition court for section 35; social work working on finding out results but it seems that bench warrant was transferred over to [place] -Patient COVID positive; unit precautions Although patient was ready for discharge, team agreed to have patient remain on the unit another couple days since bench warrant exists for Section 35, expecting patient to be picked up from the unit; however this did not come to fruition for 1 reason or another and it was unclear as to the direction of the court. Patient remained in good behavioral and impulse control and ready for discharge. Patient had been talking to his family more and felt good about plan to discharge home and figure things out with his family. Patient's remains in overall good mood, optimistic; will continue to engage in therapy. No SI.? Though he remains at risk for relapse and mood dysregulation, he is not in imminent risk for harm to self or others and appropriate for discharge to the community. Time spent discussing smoking cessation with patient: 3 to 10 minutes Status at Discharge Functional status at discharge: independent ambulation Overall status at discharge: patient is back to baseline Time Spent with Patient Time attestation: Total time managing care of this patient today ____ minutes. Time spent: Less than 30 minutes Discharge Plan Discharge Anticipated Discharge Date/Time: 04/17/23 11:30 Patient Disposition: Home, Self-Care Discharge Diagnosis: MDD, recurrent, severe in full remission Referrals: Dr. Jayna Beck [Other] - 04/17/23 (Primary care Provider (Hospital Discharge) Patent should follow-up by calling primary care provider on Sunday04/17/23 to scheduled follow-up discharge appointment.) Discharge Medications: New quetiapine 50 mg Tablet 50 mg PO BEDTIME PRN (Reason: insomnia) 30 Days Qty: 30 0RF famotidine 20 mg Tablet 20 mg PO BID 30 Days Qty: 60 0RF clonidine HCl 0.1 mg Tablet 0.1 mg PO Q4H PRN (Reason: anxiety) 30 Days Qty: 60 0RF Protocol: Hold for SBP< HOLD for SBP < : 90 hydroxyzine HCl 25 mg Tablet 25 mg PO Q6H PRN (Reason: Anxiety) 30 Days Qty: 60 0RF Continued ropinirole 1 mg tablet 1 mg PO BEDTIME clonazepam 0.5 mg tablet 0.5 mg PO TID PRN (Reason: Anxiety) oxycodone-acetaminophen 5-325 mg tablet 1 tab PO BID PRN (Reason: pain) trazodone 100 mg tablet 100 mg PO BEDTIME PRN (Reason: Sleep) lisinopril 10 mg tablet 10 mg PO DAILY gabapentin 300 mg capsule 300 mg PO BID folic acid 1 mg Tablet 1 mg PO DAILY allopurinol 300 mg Tablet 300 mg PO DAILY risankizumab-rzaa 150 mg/mL Syringe 150 mg SUBCUT Q12W methocarbamol 500 mg tablet 500 mg PO TID@0800,1400,2000 PRN (Reason: Pain) Changed sertraline 100 mg tablet 150 mg PO DAILY 30 Days Qty: 45 0RF Discontinued zolpidem 5 mg tablet 5 mg PO BEDTIME PRN (Reason: Sleep) Discharge Orders: Discharge Order (Routine); Ordered 04/17/23 Ordered By: Ahmet Winter Diet: Regular diet Activity on Discharge: As tolerated Stand Alone Forms: Patient Portal Discharge page, Community Support Care Plan Goals: Maintain mood and safe behaviors Take medications as prescribed Continue to pursue sobriety Practice coping skills Continue with outpatient providers and reach out to them as needed Health Concerns: Mood stability and behaviors Sobriety Chronic back pain Psoriasis Plan of Treatment: Follow up with your PCP, psychiatric provider and other outpatient providers regarding above concerns Take medications as prescribed Assessment: Risk assessment at time of discharge:? Patient was interviewed prior to discharge and found to be fully oriented and without any SI or HI. Patient has improved insight and judgment and wants to continue treatment. Patient is not in imminent risk of harm to self or others and has a safety plan that includes presenting to the closest ER or calling 911 if feeling unsafe.? Patient has been observed closely by nursing and unit staff throughout admission; patient has not engaged in any behaviors that suggest dangerousness to self or others and has demonstrated appropriate behaviors and impulse control Discharge Date/Time: 04/17/23 12:00
[2023-04-17 10:10] VITALS: BP 123/71; PULSE 95; RESP 16; TEMP 36.6; O2SAT 98
[2023-04-17] MEDS: Sertraline HCL 50 MG TABLET 150 MG PO (10:10)
[2023-04-17] MEDS: Gabapentin 300 MG CAPSULE PO (10:11)
[2023-04-17] MEDS: Folic Acid 1 MG TABLET PO (10:12)
[2023-04-17] MEDS: clonazePAM 0.5 MG TABLET PO (10:12)
[2023-04-17] MEDS: lisinopriL 10 MG TABLET PO (10:12)
[2023-04-17] MEDS: Famotidine 20 MG TABLET PO (10:13)
== END 2023-04-17 12:00 | disposition home or self-care (01) | DRG 751 ==
PROVIDERS: Social Worker; Admitting Provider Psychiatry & Neurology Psychiatry; Visit Provider Psychiatry & Neurology Psychiatry
DX: F33.2 Major depressive disorder, recurrent severe without psychotic features (principal); U07.1 COVID-19; R45.851 Suicidal ideations; K76.0 Fatty (change of) liver, not elsewhere classified; F10.20 Alcohol dependence, uncomplicated; F80.81 Childhood onset fluency disorder; M54.9 Dorsalgia, unspecified; G89.29 Other chronic pain; M10.9 Gout, unspecified; L40.9 Psoriasis, unspecified; Z79.899 Other long term (current) drug therapy
CPT/HCPCS: 0241U; 36415; 80053; 80061; 81001; 82607; 82746; 83036; 84443

== ENCOUNTER → 2023-04-06 00:30 | Outpatient (BNV) | payer OTHER, SELFPAY | PROVIDERS: Admitting Provider Psychiatry & Neurology Psychiatry; Visit Provider Student in an Organized Health Care Education/Training Program | DX: Z02.2 Encounter for examination for admission to residential institution (principal) | CPT/HCPCS: 99429 ==

== ENCOUNTER → 2023-04-06 00:30 | Outpatient (BNV) | payer OTHER, SELFPAY | PROVIDERS: Admitting Provider Psychiatry & Neurology Psychiatry; Visit Provider Psychiatry & Neurology Psychiatry | DX: F33.2 Major depressive disorder, recurrent severe without psychotic features (principal); K76.0 Fatty (change of) liver, not elsewhere classified | CPT/HCPCS: 90792; 99231; 99232; 99238 ==